=== PATIENT | male | born 1965 | race Caucasian/White ===

== ENCOUNTER → 2020-09-10 09:12 | Outpatient (BNVA) | payer BC, SELFPAY | PROVIDERS: PCP Family Medicine; Referring Provider Family Medicine; Visit Provider Nurse Practitioner Family | DX: Z76.89 Persons encountering health services in other specified circumstances (principal) ==

== ENCOUNTER 2020-11-25 10:24 | Outpatient (REF) | payer BC, SELFPAY | END 2020-11-25 10:25 | disposition home or self-care (01) | LOC: HO.WFDLNP 10:24 | PROVIDERS: Visit Provider Family Medicine | DX: Z20.822 Contact with and (suspected) exposure to COVID-19 (principal) | CPT/HCPCS: U0003 ==

== ENCOUNTER → 2020-11-26 08:52 | Outpatient (BNVA) | payer BC, SELFPAY | PROVIDERS: PCP Family Medicine; Visit Provider Nurse Practitioner Family | DX: Z13.89 Encounter for screening for other disorder (principal) ==

== ENCOUNTER 2020-12-02 | Outpatient (REF) | payer BC, SELFPAY | END 2020-12-02 00:01 | disposition home or self-care (01) | LOC: HO.WFDLNP | PROVIDERS: Visit Provider Family Medicine | DX: Z20.822 Contact with and (suspected) exposure to COVID-19 (principal) | CPT/HCPCS: U0003 ==

== ENCOUNTER → 2021-01-28 08:25 | Outpatient (BNVA) | payer BC, SELFPAY | PROVIDERS: PCP Family Medicine; Visit Provider Nurse Practitioner Family ==

== ENCOUNTER 2021-04-08 07:34 | Outpatient (REF) | payer BC, SELFPAY ==
[2021-04-08 11:03] LABS: Glucose Urine UA >=1000 MG/DL (NEG); Leukocyte Esterase Urine NEG (NEG); Nitrite Urine NEG (NEG); PH 5.5 (5.0-8.0); Specific Gravity - Urine >= 1.030 (1.005-1.025); Urine Blood NEG (NEG); Urine Ketones NEG (NEG); Urine Protein NEG (NEG-TRACE)
[2021-04-08 11:08] LABS: Appearance Urine CLEAR; Color Urine YELLOW
[2021-04-08 11:20] LABS: Alanine Aminotransferase 26 U/L (0-40); Albumin Level 4.5 g/dL (3.5-5.0); Alkaline Phosphatase 72 U/L (39-117); Anion Gap 13 (12-20); Aspartate Amino Transferase 15 U/L (5-37); Bilirubin Total 0.7 mg/dL (0.0-1.0); Blood Urea Nitrogen 17 mg/dL (9-16); Calcium 9.2 mg/dL (8.4-10.2); Carbon Dioxide 29 mmol/L (22-29); Chloride 101 mmol/L (96-108); Cholesterol 141 mg/dL; Estimated Glomerular Filt Rate > 60; Glucose Fasting 282 mg/dL (60-99); HDL Cholesterol 35 mg/dL; LDL Cholesterol Calculated 73 mg/dl; Potassium 4.5 mmol/L (3.3-5.1); Sodium 138 mmol/L (135-145); Total Protein 7.2 g/dL (6.5-8.0); Triglycerides 167 mg/dL
[2021-04-08 11:59] LABS: Microalbum/Creatinine Ratio Ur 11.3 ug/mg cr
[2021-04-08 12:01] LABS: RBC Urine 0 /HPF (0); Squamous Epithelial Cell Urine 1+ /LPF; WBC Urine 0 /HPF (0-4)
[2021-04-13 17:11] LABS: Testosterone, Free 31.1 pg/mL (35.0-155.0); Testosterone, Total 192 ng/dL (250-1100)
== END 2021-04-08 07:35 | disposition home or self-care (01) ==
LOC: HO.WFDLDS 07:34
PROVIDERS: Visit Provider Family Medicine
DX: Z00.00 Encounter for general adult medical examination without abnormal findings (principal); I10 Essential (primary) hypertension; E11.9 Type 2 diabetes mellitus without complications; E78.5 Hyperlipidemia, unspecified; N52.9 Male erectile dysfunction, unspecified
CPT/HCPCS: 36415; 80053; 80061; 81001; 81003; 82043; 84402; 84403; 84443

== ENCOUNTER → 2021-08-13 08:30 | Outpatient (BNVA) | payer BC, SELFPAY | PROVIDERS: PCP Family Medicine; Visit Provider Nurse Practitioner Gerontology | DX: E11.65 Type 2 diabetes mellitus with hyperglycemia (principal); E78.5 Hyperlipidemia, unspecified; E66.09 Other obesity due to excess calories; I10 Essential (primary) hypertension | CPT/HCPCS: 82947; 83036 ==

== ENCOUNTER 2022-05-14 08:09 | Outpatient (REF) | payer BC, SELFPAY ==
[2022-05-16 08:48] LABS: Follicle Stimulating Hormone 19.9 mIU/mL (1.6-8.0); Lutenizing Hormone 6.1 mIU/mL (1.5-9.3)
[2022-05-20 17:06] LABS: Testosterone, Free 57.1 pg/mL (35.0-155.0); Testosterone, Total 314 ng/dL (250-1100)
== END 2022-05-14 08:10 | disposition home or self-care (01) ==
LOC: HO.LAB 08:09
PROVIDERS: PCP Family Medicine; Visit Provider Internal Medicine Endocrinology, Diabetes & Metabolism
DX: R79.89 Other specified abnormal findings of blood chemistry (principal)
CPT/HCPCS: 36415; 83001; 83002; 84402; 84403

== ENCOUNTER 2022-07-28 14:14 | Outpatient (REF) | payer BC, SELFPAY ==
[2022-07-28 15:23] LABS: Influenza A PCR NEGATIVE (Negative); Influenza B PCR NEGATIVE (Negative); Resp Syncy Virus RNA Qual PCR NEGATIVE (Negative); SARS COV2 PCR INHOUSE POSITIVE (Negative)
== END 2022-07-28 14:15 | disposition home or self-care (01) ==
LOC: HO.LNP 14:14
PROVIDERS: Visit Provider Family Medicine
DX: Z20.822 Contact with and (suspected) exposure to COVID-19 (principal); B34.9 Viral infection, unspecified
CPT/HCPCS: 0241U

== ENCOUNTER 2022-10-10 09:17 | Outpatient (REF) | payer BC, SELFPAY ==
[2022-10-10 10:46] LABS: Alanine Aminotransferase 19 U/L (0-40); Albumin Level 4.6 g/dL (3.5-5.0); Alkaline Phosphatase 69 U/L (39-117); Anion Gap 15 (12-20); Aspartate Amino Transferase 15 U/L (5-37); Bilirubin Total 0.4 mg/dL (0.0-1.0); Blood Urea Nitrogen 12 mg/dL (9-16); Calcium 10.1 mg/dL (8.4-10.2); Carbon Dioxide 27 mmol/L (22-29); Chloride 100 mmol/L (96-108); Cholesterol 227 mg/dL; Estimated Glomerular Filt Rate > 60; Glucose Fasting 211 mg/dL (60-99); HDL Cholesterol 43 mg/dL; LDL Cholesterol Calculated 159 mg/dl; Potassium 5.2 mmol/L (3.3-5.1); Sodium 137 mmol/L (135-145); Total Protein 7.3 g/dL (6.5-8.0); Triglycerides 126 mg/dL
[2022-10-10 10:57] LABS: Prostate Specific Antigen Scr 0.22 ng/mL (<0.05-4.0); TSH reflex Free T4 0.51 uIU/mL (0.32-4.0)
[2022-10-10 10:59] LABS: Appearance Urine Clear; Color Urine Yellow; Glucose Urine UA 250 mg/dL (Negative); Leukocyte Esterase Urine Negative (Negative); Nitrite Urine Negative (Negative); Specific Gravity - Urine 1.015 (1.005-1.025); Urine Blood Negative (Negative); Urine Ketones Negative (Negative); Urine Protein Negative (Neg-Trace)
[2022-10-10 11:25] LABS: Creatinine Urine 77.58 mg/dL
== END 2022-10-10 09:18 | disposition home or self-care (01) ==
LOC: HO.LAB 09:17
PROVIDERS: PCP Family Medicine; Visit Provider Family Medicine
DX: Z00.00 Encounter for general adult medical examination without abnormal findings (principal); Z12.5 Encounter for screening for malignant neoplasm of prostate; I10 Essential (primary) hypertension
CPT/HCPCS: 36415; 80053; 80061; 81003; 82043; 84153; 84443

== ENCOUNTER 2022-10-29 10:34 | Outpatient (REF) | payer BC, SELFPAY ==
--- NOTE | ~2022-10-29 | XR_ITS ---
EXAMINATION: XR HIP, RIGHT CLINICAL INFORMATION: Right hip pain COMPARISON: None TECHNIQUE: Two views of the right hip. FINDINGS: No fracture or dislocation. The right hip is well aligned. There is significant narrowing of the joint space with subchondral sclerosis and osteophyte formation. The right hemipelvis is intact. Normal bowel gas pattern. XR/XR hip RT min 2V IMPRESSION: Moderate to severe degenerative changes of the right hip.
== END 2022-10-29 10:35 | disposition home or self-care (01) ==
LOC: HO.XRAY 10:34
PROVIDERS: PCP Family Medicine; Visit Provider Family Medicine
DX: M25.551 Pain in right hip (principal)
CPT/HCPCS: 73502

== ENCOUNTER 2022-12-12 09:41 | Outpatient (REF) | payer OTHER, SELFPAY ==
[2022-12-12 11:44] LABS: Alanine Aminotransferase 23 U/L (0-40); Albumin Level 4.4 g/dL (3.5-5.0); Alkaline Phosphatase 69 U/L (39-117); Anion Gap 16 (12-20); Aspartate Amino Transferase 17 U/L (5-37); Bilirubin Total 0.7 mg/dL (0.0-1.0); Blood Urea Nitrogen 11 mg/dL (9-16); Calcium 9.6 mg/dL (8.4-10.2); Carbon Dioxide 26 mmol/L (22-29); Chloride 102 mmol/L (96-108); Cholesterol 128 mg/dL; Estimated Glomerular Filt Rate > 60; Glucose Fasting 195 mg/dL (60-99); HDL Cholesterol 36 mg/dL; LDL Cholesterol Calculated 74 mg/dl; Potassium 4.7 mmol/L (3.3-5.1); Sodium 139 mmol/L (135-145); Triglycerides 94 mg/dL
== END 2022-12-12 09:42 | disposition home or self-care (01) ==
LOC: HO.LAB 09:41
PROVIDERS: PCP Family Medicine; Visit Provider Family Medicine
DX: Z00.00 Encounter for general adult medical examination without abnormal findings (principal); E11.65 Type 2 diabetes mellitus with hyperglycemia; E78.5 Hyperlipidemia, unspecified
CPT/HCPCS: 36415; 80053; 80061

== ENCOUNTER → 2022-12-23 14:57 | Outpatient (BNVA) | payer OTHER, SELFPAY | PROVIDERS: PCP Family Medicine; Visit Provider Physician Assistant | DX: Z13.89 Encounter for screening for other disorder (principal) ==

== ENCOUNTER → 2023-01-13 14:29 | Outpatient (BNVA) | payer OTHER, SELFPAY | PROVIDERS: PCP Family Medicine; Visit Provider Internal Medicine Endocrinology, Diabetes & Metabolism | DX: E11.65 Type 2 diabetes mellitus with hyperglycemia (principal) | CPT/HCPCS: 82947; 83036 ==

== ENCOUNTER 2023-01-20 12:29 | Outpatient (REF) | payer OTHER, SELFPAY ==
--- NOTE | ~2023-01-20 | XR_ITS ---
EXAMINATION: XR PELVIS CLINICAL INFORMATION: Pain in hips. COMPARISON: Right hip 10/29/2022. TECHNIQUE: AP view of the pelvis. FINDINGS: There is severe loss of right hip joint space with periarticular spurring and subchondral cystic changes. There is a total left hip arthroplasty with prosthetic components in satisfactory alignment. The SI joints are symmetrical. No gross bony abnormality seen. XR/XR pelvis 1-2V IMPRESSION: 1. Severe degenerative arthritic changes right hip joint. 2. Total left hip arthroplasty with prosthetic components in satisfactory alignment.
== END 2023-01-20 12:30 | disposition home or self-care (01) ==
LOC: HO.HOSX 12:29
PROVIDERS: Visit Provider Physician Assistant
DX: M16.11 Unilateral primary osteoarthritis, right hip (principal); Z79.899 Other long term (current) drug therapy; Z79.4 Long term (current) use of insulin; Z96.642 Presence of left artificial hip joint
CPT/HCPCS: 72170

== ENCOUNTER → 2023-05-24 10:44 | Outpatient (BNVA) | payer OTHER, SELFPAY | PROVIDERS: PCP Family Medicine; Visit Provider Dietitian, Registered | DX: E11.65 Type 2 diabetes mellitus with hyperglycemia (principal); Z71.3 Dietary counseling and surveillance | CPT/HCPCS: 97802 ==

== ENCOUNTER → 2023-05-31 10:54 | Day surgery (SDC) | payer OTHER, SELFPAY ==
[2023-05-27 13:30] VITALS: BMI 32.9
--- NOTE | 2023-05-27 14:25 | HO.ANESPROP2 ---
HPI - Anesthesia Eval Consult details Narrative: 57yo M for Colonoscopy [facility] Active Problems Active Problems: All Active Problems (Updated 04/12/23 @ 14:39 by Pepe Jane) Concussion (Acute) Osteoarthritis of right hip (Acute) Low HDL (under 40) (Acute) Right hip pain (Acute) Screening for prostate cancer (Acute) Screening for colon cancer (Acute) Adult general medical exam (Acute) Viral illness (Acute) Low testosterone (Acute) Hypertension (Acute) Hyperlipidemia (Acute) Obesity due to excess calories (Acute) Diabetes type 2, uncontrolled (Acute) Hypogonadism (Acute) Erectile dysfunction (Acute) Contact with or exposure to other viral diseases (Acute) Sinus infection (Acute) Cough (Acute) Contact with or exposure to other viral diseases (Acute) Depression (Acute) Type 2 diabetes mellitus without complication (Acute) Past Medical History Medical History Diabetes type 2, uncontrolled Hyperlipidemia Hypertension Low testosterone Obesity due to excess calories Obstructive sleep apnea Family History Family History Father Cancer Stroke (cerebrum) Mother CVD (cardiovascular disease) Diabetes HTN (hypertension) Mental disorder Brother Diabetes CVD (cardiovascular disease) Surgical History Surgical History History of total hip replacement Social History Social History Household Members: Spouse Housing: House Are you a primary career development associate to a significant other at home: No Do you presently have visiting nurse or other home services: No Alcohol intake: current Alcohol intake frequency: holidays/special occasions only Patient Tobacco Use Status: Former Tobacco user Quit Date: 2018 e-Cigarette/Vaping Use: Never Used Second Hand Smoke Exposure: No Current occupational status: employed 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 Current occupational exposures/hazards: No Cognitive needs: No Hearing needs: No Vision needs: No Meds Allergies Allergy/AdvReac Type Severity Reaction Status Date / Time niacin Allergy Mild neuropathy Verified 04/12/23 14:14 s/s Home Medications Medication Instructions Recorded Confirmed Last Taken Type amlodipine 5 mg-benazepril 20 mg 1 cap PO BEDTIME 05/27/23 05/27/23 Unknown History capsule atorvastatin 40 mg tablet 40 mg PO BEDTIME 05/27/23 05/27/23 Unknown History escitalopram oxalate 20 mg tablet 20 mg PO BEDTIME 05/27/23 05/27/23 Unknown History Exam Exam Date and Time: May 27, 2023 1425 Height,Weight and Vital Signs: Height 6 ft 2 in Weight 116.12 kg Pertinent Lab Results Pertinent Lab Results: Laboratory Tests 12/12/22 10:03 Sodium 139 Potassium 4.7 Chloride 102 Carbon Dioxide 26 BUN 11 Creatinine 0.90 Assessment and Plan Assessment Anesthesia Assessment: Chart Reviewed
== END ==
PROVIDERS: PCP Family Medicine; Visit Provider Internal Medicine Gastroenterology
DX: Z12.11 Encounter for screening for malignant neoplasm of colon (principal); Z53.8 Procedure and treatment not carried out for other reasons; I10 Essential (primary) hypertension; E78.5 Hyperlipidemia, unspecified; E11.9 Type 2 diabetes mellitus without complications

== ENCOUNTER 2023-06-22 12:06 | Day surgery (SDC) | payer OTHER, SELFPAY ==
[2023-06-18 08:39] VITALS: BMI 33.2
[2023-06-22 12:42] VITALS: BP 132/83; PULSE 79; RESP 18; TEMP 36.2; O2SAT 95; BMI 32.9
[2023-06-22 12:44] LABS: Glucose, Whole Blood 111 mg/dL (60-115)
[2023-06-22] MEDS: Lactated Ringers 1,000 ML 100 ML IVCONT (13:01)
[2023-06-22] MEDS: Sodium Phosphate,Mono-Dibasic 133 ML ENEMA PR ×2 (13:02→13:16)
--- NOTE | 2023-06-22 13:26 | MHC.SHP ---
Pre-Procedural Eval Section A Date of Service: 06/22/23 The patient is an INPATIENT: No The History & Physical has been completed within 30 days and I have reviewed it.: No Section B Chief Complaint: Encounter for screening for malignant neoplasm Relevant Family History (Specify if Yes): No Relevant Social History: None Present Medications: see Short Stay Collaborative assessment Medical History: Significant History (Diabetes type 2, uncontrolled Hyperlipidemia Hypertension Low testosterone Obesity due to excess calories Obstructive sleep apnea) History of Previous Operations: Relevant previous surgery/procedure and date(s) (History of total hip replacement) Allergies: Allergies Allergy/AdvReac Type Severity Reaction Status Date / Time niacin Allergy Mild neuropathy Verified 04/12/23 14:14 s/s Review of Systems Sugical H&P ROS: Negative: Constitution, Cardiovascular, Respiratory and Gastrointestinal Exam Surgical H&P Exam: Normal: Heart, Normal: Lungs, Normal: Extremities and Normal: Abdomen Plan Diagnosis/Plan: Unchanged I have reviewed the history and physical and performed a pertinent physical examination on my patient. No changes have occurred unless specified. Time Spent With Patient Time: Total time managing care of this patient today ____ minutes.
--- NOTE | 2023-06-22 13:50 | P.CONAN_ITS ---
HPI - Anesthesia Eval Consult details Narrative: for colonoscopy [facility] Active Problems Active Problems: All Active Problems (Updated 04/12/23 @ 14:39 by Pepe Jane) Concussion (Acute) Osteoarthritis of right hip (Acute) Low HDL (under 40) (Acute) Right hip pain (Acute) Screening for prostate cancer (Acute) Screening for colon cancer (Acute) Adult general medical exam (Acute) Viral illness (Acute) Low testosterone (Acute) Hypertension (Acute) Hyperlipidemia (Acute) Obesity due to excess calories (Acute) Diabetes type 2, uncontrolled (Acute) Hypogonadism (Acute) Erectile dysfunction (Acute) Contact with or exposure to other viral diseases (Acute) Sinus infection (Acute) Cough (Acute) Contact with or exposure to other viral diseases (Acute) Depression (Acute) Type 2 diabetes mellitus without complication (Acute) Past Medical History Medical History Diabetes type 2, uncontrolled Hyperlipidemia Hypertension Low testosterone Obesity due to excess calories Obstructive sleep apnea Family History Family History Father Cancer Stroke (cerebrum) Mother CVD (cardiovascular disease) Diabetes HTN (hypertension) Mental disorder Brother Diabetes CVD (cardiovascular disease) Family history of problems with anesthesia: No Surgical History Surgical History History of total hip replacement History of Problems with Anesthesia: No Social History Social History Household Members: Spouse Housing: House Are you a primary healthcare financial analyst to a significant other at home: No Do you presently have visiting nurse or other home services: No Alcohol intake: current Alcohol intake frequency: holidays/special occasions only Patient Tobacco Use Status: Former Tobacco user Quit Date: 2018 e-Cigarette/Vaping Use: Never Used Second Hand Smoke Exposure: No Use of substances other than those prescribed or required for medical reasons: No Are you DNR?: No Advance Directives: No Advance Directives Information Provided: Yes Current occupational status: employed 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 Current occupational exposures/hazards: No Cognitive needs: No Hearing needs: No Vision needs: No Meds Allergies Allergy/AdvReac Type Severity Reaction Status Date / Time niacin Allergy Mild neuropathy Verified 04/12/23 14:14 s/s Active Medications: Current Medications Lactated Ringer's (Lr) 1,000 mls @ 100 mls/hr IVCONT .Q10H HERB Last Admin: 06/22/23 13:01 Dose: 100 mls/hr Ondansetron HCl (Ondansetron Hcl 4 Mg/2 Ml Vial) 4 mg IVPUSH ONCE PRN PRN Reason: Nausea and Vomiting Sodium Biphosphate/Sodium Phosphate (Sodium Phosphate,[place]-Dibasic 133 Ml Enema) 133 ml SC ONCE PRN PRN Reason: Poor Colonoscopy Prep Results Last Admin: 06/22/23 13:02 Dose: 133 ml Sodium Biphosphate/Sodium Phosphate (Sodium Phosphate,[place]-Dibasic 133 Ml Enema) 133 ml SC ONCE PRN PRN Reason: Poor Colonoscopy Prep Results Last Admin: 06/22/23 13:16 Dose: 133 ml Home Medications Medication Instructions Recorded Confirmed Last Taken Type amlodipine 5 mg-benazepril 20 mg 1 cap PO BEDTIME 05/27/23 06/22/23 Unknown History capsule atorvastatin 40 mg tablet 40 mg PO BEDTIME 05/27/23 06/22/23 Unknown History escitalopram oxalate 20 mg tablet 20 mg PO BEDTIME 05/27/23 06/22/23 Unknown History Exam Exam Date and Time: June 22, 2023 1350 Height,Weight and Vital Signs: Height 6 ft 2 in Weight 116.12 kg Last Vital Signs Temp 97.1 F 06/22/23 12:42 Pulse 79 06/22/23 12:42 Resp 18 06/22/23 12:42 BP 132/83 06/22/23 12:42 Pulse Ox 95 06/22/23 12:42 O2 Del Method Room Air 06/22/23 12:42 Pertinent Lab Results Pertinent Lab Results: Laboratory Tests 06/22/23 12:39 POC Glucose 111 Airway Mallampati Class: I TM Dist: >3cm Neck ROM: Full Loose/Missing/Broken Teeth: No Heart: ok Lungs: ok Assessment and Plan Assessment Anesthesia Assessment: Anesthesia Plan Discussed and Chart Reviewed Final Anesthetic Review Family History of Problems with Anesthesia: No History of Problems with Anesthesia: No NPO: Yes ASA Class: III Final Preanesthetic Review: No Changes in Pt Med Stat, Meds/Allgs Chart Reviewed, Consent Obtained/Reviewed and Anes Risks/Benef Reviewed Patient Risk: Intermediate Procedure Risk: Low Anesthetic Plan Anesthetic Plan: MAC: and Agree w/ Assess. and Plan Disposition: Standard PACU
--- NOTE | 2023-06-22 13:54 | W.PM.OPN ---
Operative Note Operative Note Date of Service: 06/22/23 Narrative: COLONOSCOPY TILL CECUM WITH BIOPSIES AND SNARE POLYPECTOMY Pre-op diagnosis: Colon cancer screening Post-op diagnosis:? Colon polyps, diverticulosis, hemorrhoids Endoscopist:? Hamzah Alcaraz MD Anesthesia:?MAC Consent: Indications for the procedure and potential complications of bleeding, perforation, reaction to medications and missed diagnosis were discussed with the patient and informed consent was obtained. Instrument: Olympus CF H 190 L variable stiffness adult colonoscope Monitoring: Vital signs and clinical assessment, intermittent blood pressure monitoring, continuous EKG monitoring, Pulse oximetry and Carbon Dioxide monitoring were done throughout the procedure. Please see anesthesia flowsheet. Colon withdrawl time was 24 minutes. Procedure: The patient was placed in the left lateral decubitis position and pre-procedure medications were administered. After a digital rectal examination of the ano-rectum, the video colonoscope was inserted into the rectum and advanced through the colon to the cecum. The colonoscope was slowly withdrawn in a retrograde panoramic fashion and the colon mucosa was carefully examined including a retroflexed view of the rectum. Findings and interventions are described below. Procedure Difficulty: Colon was long and there was recurrent loop formation Findings: Terminal Ileum: Not evaluated Cecum: Partially evaluated due to undigested vegetable matter which could not be suctioned Ascending Colon: Normal Transverse Colon: A 3-4 mm diminutive appearing polyp removed with a cold biopsy Descending Colon: Moderate diverticulosis Sigmoid Colon: A 10 mm sessile polyp removed with a cold snare. Some bleeding noted from the polypectomy site controlled with 1 hemoclip. A 4-5 mm sessile polyp - removed with a cold biopsy Moderate diverticulosis Rectum: Normal Ano-rectum: Moderate internal hemorrhoids Colon preparation: Good after copious irrigation and fair in the cecum and left colon Impression and Post Procedure Diagnosis: Colonoscopy Findings: Two small and one medium sized polyps removed Moderate diverticulosis seen in the left colon Moderate hemorrhoids on retroflexed exam. Plan: Await pathology results Patient has an appointment on 07/07/23 in the GI Clinic with DECLAN Bhatti. Repeat Colonoscopy interval based on path results - in 3 years if polyps are adenomatous and due to fair prep. (adult colonoscope and dulcolax 2 tablets daily x 5 days before colonoscopy appt and 2 day prep) Above findings were reviewed with the patient and colon polyps and diverticulosis handouts were given in the discharge area
[2023-06-22 14:54] VITALS: BP 129/71; PULSE 69; RESP 15; TEMP 36.3; O2SAT 95
[2023-06-22 15:11] VITALS: BP 129/69; PULSE 68; RESP 18; TEMP 36.1; O2SAT 97
== END 2023-06-22 15:27 | disposition home or self-care (01) ==
PROVIDERS: PCP Family Medicine; Visit Provider Internal Medicine Gastroenterology
PROC: 0DJD8ZZ Inspection of Lower Intestinal Tract, Via Natural or Artificial Opening Endoscopic (ICD-10-PCS; CPT 45378; principal; 2023-06-22 13:30)
DX: Z12.11 Encounter for screening for malignant neoplasm of colon (principal); D12.3 Benign neoplasm of transverse colon; D12.5 Benign neoplasm of sigmoid colon; K57.30 Diverticulosis of large intestine without perforation or abscess without bleeding; K64.8 Other hemorrhoids; I10 Essential (primary) hypertension; E11.9 Type 2 diabetes mellitus without complications; E66.01 Morbid (severe) obesity due to excess calories; Z68.33 Body mass index [BMI] 33.0-33.9, adult; G47.33 Obstructive sleep apnea (adult) (pediatric); Z99.89 Dependence on other enabling machines and devices; Z79.899 Other long term (current) drug therapy; Z79.85 Long-term (current) use of injectable non-insulin antidiabetic drugs; Z79.84 Long term (current) use of oral hypoglycemic drugs; Z88.8 Allergy status to other drugs, medicaments and biological substances; Z96.642 Presence of left artificial hip joint; Z87.891 Personal history of nicotine dependence
CPT/HCPCS: 45385; 45380; 82947; 88305

== ENCOUNTER → 2023-06-22 12:06 | Outpatient (BNV) | payer OTHER, SELFPAY | PROVIDERS: PCP Family Medicine; Visit Provider Internal Medicine Gastroenterology | DX: Z12.11 Encounter for screening for malignant neoplasm of colon (principal); D12.3 Benign neoplasm of transverse colon; D12.5 Benign neoplasm of sigmoid colon; K57.90 Diverticulosis of intestine, part unspecified, without perforation or abscess without bleeding | CPT/HCPCS: 45380; 45385 ==

== ENCOUNTER 2023-07-01 09:59 | Outpatient (AMB) | payer OTHER, SELFPAY ==
--- NOTE | 2023-07-01 10:13 | MHC.PC.OV ---
Vital Signs 07/01/23 10:14 Height 6 ft 2 in Weight 250 lb 2 oz BMI 32.1 BP 122/78 Blood Pressure Location Lt brachial Position Sitting Respiration 12 Pulse 81 Pulse Source Pulse Oximeter Temp 97.7 F Temp Source Temporal Artery Scan Pulse Oximetry (%) 98 Oxygen Delivery Method Room Air Intake Visit Reasons: f/u diabetes Intake Note: Patient states that he needs a refill for his atorvastatin. Wire Taper Required: No Accompanied by: Self / Same As Patient Allergies niacin Allergy (Mild, Verified 07/01/23 10:23) neuropathy s/s Tobacco use date assessed: 10/06/22 Dental Screening Dental Screen Date: 07/01/23 Did you have a dental visit in the last 12 months?: No Did you have a dental problem in the last 6 months where you did not have access to dental care?: No Was dental information given to patient?: Patient has dentist HPI f/u diabetes HPI Details 57 y/o male presents to f/u diabetes. He is on dulaglutide 1.5mg, metformin 1000mg b.i.d. and Tresiba 76 units for his diabetes. Last A1c 01/13/23 10.5%. A1c today 07/01/23 is 8.2%. He reports he has recorded blood sugars in the 120-160s. He continues to work on losing his weight. He has had an eye exam on February and he reports there was no diabetic retinopathy. [facility] Medical History Diabetes type 2, uncontrolled Hyperlipidemia Hypertension Low testosterone Obesity due to excess calories Obstructive sleep apnea Surgical History History of total hip replacement Hx of colonoscopy Family History Father Cancer Stroke (cerebrum) Mother CVD (cardiovascular disease) Diabetes HTN (hypertension) Mental disorder Brother Diabetes CVD (cardiovascular disease) Social History Household Members: Spouse Housing: House Are you a primary career services director to a significant other at home: No Do you presently have visiting nurse or other home services: No Alcohol intake: current Alcohol intake frequency: holidays/special occasions only Patient Tobacco Use Status: Former Tobacco user Quit Date: 2018 e-Cigarette/Vaping Use: Never Used Second Hand Smoke Exposure: No service: No Current occupational status: employed 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 Raul Finch, Chiquis Cobos, Rodney Lamar and colleagues, with an educational shant from [employer] Review of Systems Const Denies chills, Denies fatigue, Denies fever(s), Denies headache(s) and Denies weakness ENT Denies dizziness and Denies headache(s) Card Denies chest pain, Denies lightheadedness, Denies dyspnea and Denies other (Palpitations) Resp Denies cough, Denies dyspnea, Denies wheezing and Denies other ( shortness of breath) Musc Denies numbness and Denies tingling Neuro Denies dizziness, Denies headache(s), Denies numbness, Denies tingling, Denies paresthesias and Denies weakness Psych Denies anxiety and Denies depression Endo Denies fatigue Aller/Immun Denies wheezing Physical exam (Primary Care) Vital Signs: Last Vital Signs Temp 97.7 F 07/01/23 10:14 Pulse 81 07/01/23 10:14 Resp 12 07/01/23 10:14 BP 122/78 07/01/23 10:14 Pulse Ox 98 07/01/23 10:14 Oxygen Delivery Method Room Air 07/01/23 10:14 BMI result Body Mass Index 32.1 Tobacco/Smoking Status: Tobacco use Status Tobacco use date assessed 10/06/22 07/01/23 10:13 Patient Tobacco Use Status Former Tobacco user 07/01/23 10:13 e-Cigarette/Vaping Use Never Used 07/01/23 10:13 Thrive Assessment: Date of Thrive Assessment Date Thrive assessed 12/16/22 07/01/23 10:13 Const General: no acute distress and well developed Nutritional Appearance: well nourished Orientation/consciousness: patient oriented x3 HENMT Head: Yes normocephalic and Yes atraumatic Eyes General: appearance normal, both eyes and all related structures Pupils: Equal, round and reactive pupils present EOM: EOMs intact bilaterally Resp Effort & Inspection: normal respiratory effort Auscultation: clear to auscultation bilaterally Cardio Rate: regular rate Rhythm: regular rhythm Heart sounds: S1 normal heart sound present, S2 normal heart sound present, no gallops, no murmurs and no rubs Neuro General: patient oriented x3 and gait normal Cranial nerves: Yes Equal, round and reactive pupils present Psych Affect: normal affect Results AMB Hemoglobin A1c AMB Hemoglobin A1c 8.2 % Last Edit by Chioma Allison CMA on 07/01/23 10:57 Results Reviewed Results Reviewed: Laboratory Last Values Hgb A1c (Clinic) 8.2 % (4.0-6.0) H 07/01/23 10:56 Assessment and Plan Assessment & Plan (1) Diabetes type 2, uncontrolled: Code(s): E11.65 - Type 2 diabetes mellitus with hyperglycemia Plan: A1c has improved from 10.5% to 8.2%. Still poorly controlled but much improved. Will is less than 7.0% Will increase Trulicity from 1.5 mg weekly to 3.0 mg weekly He will continue Tresiba and metformin as prescribed Followed by Nutrition and he is working on weight loss and improving his diabetic diet. Has a Veronika system which is helping him understand the changes he makes Had a recent eye exam in February which did not show any diabetic retinopathy He has not seen his fire alarm dispatcher since December so encouraged him to follow-up Orders: Orders AMB Hemoglobin A1c Today Z13.9 - Encounter for screening, unspecified Medications: Changed From atorvastatin 40 mg PO BEDTIME To atorvastatin 40 mg PO BEDTIME 90 tabs 3RF 90 days From dulaglutide on wednesday night 1.5 mg (0.5 mL) subcut QWEEK 84 days 6 mL 6RF E11.65 - Type 2 diabetes mellitus with hyperglycemia To dulaglutide on wednesday night 3 mg (0.5 mL) subcut QWEEK 6 mL 6RF 84 days E11.65 - Type 2 diabetes mellitus with hyperglycemia Discontinued atorvastatin 40 mg PO DAILY 90 tabs 2RF amlodipine-benazepril 5-20 mg 1 cap PO DAILY 90 caps 3RF escitalopram oxalate 20 mg PO DAILY 90 days 90 tabs 3RF Coding Level of Care Code Est Pt Level 3 (16565) Diagnoses Diabetes type 2, uncontrolled E11.65
[2023-07-01 10:14] VITALS: BP 122/78; PULSE 81; RESP 12; TEMP 36.5; O2SAT 98; BMI 32.1
== END 2023-07-01 10:52 | disposition home or self-care (01) ==
PROVIDERS: PCP Family Medicine; Visit Provider Family Medicine
DX: E11.65 Type 2 diabetes mellitus with hyperglycemia (principal)
CPT/HCPCS: 83036; 99213

== ENCOUNTER 2023-07-07 10:05 | Outpatient (AMB) | payer OTHER, SELFPAY ==
--- NOTE | 2023-07-07 10:06 | A.OFFVIS_ITS ---
Intake Vital Signs 07/07/23 10:08 Height 6 ft 2 in Weight 250 lb 2 oz BMI 32.1 BP 126/72 Blood Pressure Location Lt brachial Position Sitting Pulse 83 Intake Visit Reasons: S/p colon- Kieran Intake Note: Patient follow up for Colonoscopy results. Patient denies any GI issues. Armature Inspector Required: No Accompanied by: Self / Same As Patient Allergies niacin Allergy (Mild, Verified 07/07/23 10:06) neuropathy s/s PFSH Medical History Diabetes type 2, uncontrolled Hyperlipidemia Hypertension Low testosterone Obesity due to excess calories Obstructive sleep apnea Surgical History History of total hip replacement Hx of colonoscopy Family History Father Cancer Stroke (cerebrum) Mother CVD (cardiovascular disease) Diabetes HTN (hypertension) Mental disorder Brother Diabetes CVD (cardiovascular disease) Social History Household Members: Spouse Housing: House Are you a primary customer care specialist to a significant other at home: No Do you presently have visiting nurse or other home services: No Alcohol intake: current Alcohol intake frequency: holidays/special occasions only Patient Tobacco Use Status: Former Tobacco user Quit Date: 2018 e-Cigarette/Vaping Use: Never Used Second Hand Smoke Exposure: No service: No Current occupational status: employed 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 Current occupational exposures/hazards: No Cognitive needs: No Hearing needs: No Vision needs: No Review of Systems Const All systems reviewed & are unremarkable except as noted in HPI and below Card Denies chest pain and Denies dyspnea Resp Denies dyspnea Physical Exam Vital Signs: Last Vital Signs Pulse 83 07/07/23 10:08 BP 126/72 07/07/23 10:08 BMI result Body Mass Index 32.1 Const General: cooperative, healthy appearing and no acute distress Orientation/consciousness: patient oriented x3 Limitations: no limitations Resp Effort & Inspection: normal respiratory effort and able to speak in complete sentences Neuro General: patient oriented x3 Extrem General: Yes full ROM Psych Appearance: grossly normal and well kempt Mental Status: mental status grossly normal Speech and movement: Normal speech and movement present and Clear speech present Affect: normal affect Attitude: cooperative Thought process: Normal thought process present Thought content: Normal thought content present Insight: Good insight present (Psych) Judgement: Good judgement present (Psych) Results Reviewed Results Reviewed: lonoscopy Findings: Two small and one medium sized polyps removed Moderate diverticulosis seen in the left colon Moderate hemorrhoids on retroflexed exam. Plan: Await pathology results Patient has an appointment on 07/07/23 in the GI Clinic with DECLAN Bhatti. Repeat Colonoscopy interval based on path results - in 3 years if polyps are adenomatous and due to fair prep. (adult colonoscope and dulcolax 2 tablets daily x 5 days before colonoscopy appt and 2 day prep) Above findings were reviewed with the patient and colon polyps and diverticulosis handouts were given in the discharge area vicente:?Jesse Valera Age/Sex: 57/M Attending: Hamzah Alcaraz MD : [id number] Submitted by: Hamzah Alcaraz MD Copies to: Octaviano Villeda MD MR #: [id number] ? [place] [facility] [place] [facility] [place]: 06/22/23 Location: [facility] Received: 06/23/23 Diagnosis A.? Colon, transverse, polyp:? Tubular adenoma; negative for high-grade dysplasia and carcinoma.? B.? Colon, sigmoid, 2 polyps:? Tubular adenoma (one); negative for high-grade dysplasia and carcinoma, and colonic mucosa (3 pieces) with minimal hyperplastic changes. Clinical History Pre-Op Dx:? Colon cancer screening Post-Op Dx: Colon polyps, diverticulosis, hemorrhoids You should undergo a colonoscopy again in 3 years Assessment & Plan Assessment & Plan (1) Tubular adenoma: Comment: Reviewed procedure report and pathology, recommendations Code(s): D36.9 - Benign neoplasm, unspecified site Plan: The asymptomatic colonoscopy 3 years (2) Diverticulosis of colon: Code(s): K57.30 - Diverticulosis of large intestine without perforation or abscess without bleeding Plan: Diverticulosis/diverticulitis ER protocol\maintain high-fiber diet (3) Hemorrhoids: Code(s): K64.9 - Unspecified hemorrhoids Plan: Avoid straining High-fiber diet Plan Repeat Colonoscopy 3 years adenomatous and due to fair prep. (adult colonoscope and dulcolax 2 tablets daily x 5 days before colonoscopy appt and 2 day prep) Medications: Discontinued atorvastatin 40 mg PO DAILY 90 tabs 2RF amlodipine-benazepril 5-20 mg 1 cap PO DAILY 90 caps 3RF escitalopram oxalate 20 mg PO DAILY 90 days 90 tabs 3RF Patient Instructions: Very pleasant 57-year-old talkative Gent follows up after recent colonoscopy with polypectomy Reviewed procedure report and pathology 3 year repeat colonoscopy ER protocol- Diverticulosis/ diverticulitis Avoid straining Coding Level of Care Code Est Pt Level 3 (34289) Diagnoses Tubular adenoma D36.9 Diverticulosis of colon K57.30 Hemorrhoids K64.9 Time Spent (min) 25
[2023-07-07 10:08] VITALS: BP 126/72; PULSE 83; BMI 32.1
== END 2023-07-07 10:45 | disposition home or self-care (01) ==
PROVIDERS: PCP Family Medicine; Visit Provider Physician Assistant
DX: D36.9 Benign neoplasm, unspecified site (principal); K57.30 Diverticulosis of large intestine without perforation or abscess without bleeding; K64.9 Unspecified hemorrhoids
CPT/HCPCS: 99213

== ENCOUNTER → 2023-07-07 10:05 | Outpatient (BNVA) | payer OTHER, SELFPAY | PROVIDERS: PCP Family Medicine; Visit Provider Physician Assistant ==

== ENCOUNTER 2023-09-16 09:39 | Outpatient (AMB) | payer OTHER, SELFPAY ==
[2023-09-16 09:43] VITALS: BP 120/80; PULSE 77; O2SAT 98; BMI 32.5
--- NOTE | 2023-09-16 09:43 | A.OFFPC_ITS ---
Vital Signs 09/16/23 09:43 Height 6 ft 2 in Weight 253 lb 8 oz BMI 32.5 BP 120/80 Blood Pressure Location Lt brachial Position Sitting Pulse 77 Pulse Source Pulse Oximeter Pulse Oximetry (%) 98 Oxygen Delivery Method Room Air Intake Visit Reasons: depression Intake Note: Patient is here for follow up on depression. Allergies niacin Allergy (Mild, Verified 09/16/23 09:45) neuropathy s/s Tobacco use date assessed: 09/16/23 HPI depression HPI Details 58 y/o male presents to f/u depression. Pt is on bupropion 75mg b.i.d. for his mood. He has had multiple stressors this year dealing with family tragedy. He has been keeping himself active doing outdoor things. They state he has good family support. He continues to follow-up with Dr. Linares Endocrinology for his diabetes. Pt has ongoing complaints of hip pain. [facility] Medical History Diabetes type 2, uncontrolled Hyperlipidemia Hypertension Low testosterone Obesity due to excess calories Obstructive sleep apnea Surgical History History of total hip replacement Hx of colonoscopy Family History Father Cancer Stroke (cerebrum) Mother CVD (cardiovascular disease) Diabetes HTN (hypertension) Mental disorder Brother Diabetes CVD (cardiovascular disease) Social History Household Members: Spouse Housing: House Are you a primary care management coordinator to a significant other at home: No Do you presently have visiting nurse or other home services: No Alcohol intake: current Alcohol intake frequency: holidays/special occasions only Patient Tobacco Use Status: Former Tobacco user Quit Date: 2018 e-Cigarette/Vaping Use: Never Used Second Hand Smoke Exposure: No service: No Current occupational status: employed 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 1. Little interest or pleasure in doing things: more than half the days 2. Feeling down, depressed, or hopeless: more than half the days 3. Trouble falling or staying asleep, or sleeping too much: nearly every day 4. Feeling tired or having little energy: more than half the days 5. Poor appetite or overeating: not at all 6. Feeling bad about yourself - or that you are a failure or have let yourself or your family down: more than half the days 7. Trouble concentrating on things, such as reading the newspaper or watching television: not at all 8. Moving or speaking so slowly that other people could have noticed. Or the opposite - being so fidgety or restless that you have been moving around a lot more than usual: not at all 9. Thoughts that you would be better off or of hurting yourself in some way: not at all Total score: 11 Depression Screening Interpretation: Positive Depression Screening Done: Yes Source: Developed by Drs. Raul Finch, Chiquis Cobos, Rodney Lamar and colleagues, with an educational shant from [employer]. Thrive Questionnaire Date Thrive assessed: 12/16/22 WOO-7 AMB Questionnaire WOO-7 Date WOO - 7 assessed: 09/16/23 Feeling nervous, anxious, or on edge: 1 = Several days Not being able to stop or control worryin = Not at all Worrying too much about different things: 1 = Several days Trouble relaxin = Not at all Being so restless that it is hard to sit still: 0 = Not at all Becoming easily annoyed or irritable: 1 = Several days Feeling afraid as if something awful might happen: 1 = Several days Total WOO-7 score (0-4 normal; 5-9 mild; 10-14 moderate; 15-21 severe): 4 Source: Developed by Drs. Raul Finch, Chiquis Cobos, Rodney Lamar and colleagues, with an educational shant from [employer]. Review of Systems Const Denies chills, Denies fatigue, Denies fever(s), Denies headache(s) and Denies weakness ENT Denies dizziness and Denies headache(s) Card Denies dyspnea Resp Denies cough, Denies dyspnea, Denies wheezing and Denies other (shortness of breath) Musc Denies numbness and Denies tingling Neuro Denies dizziness, Denies headache(s), Denies numbness, Denies tingling and Denies weakness Psych Denies anxiety and Reports depression Endo Denies fatigue Aller/Immun Denies wheezing Physical exam (Primary Care) Vital Signs: Last Vital Signs Pulse 77 09/16/23 09:43 BP 120/80 09/16/23 09:43 Pulse Ox 98 09/16/23 09:43 Oxygen Delivery Method Room Air 09/16/23 09:43 BMI result Body Mass Index 32.5 Tobacco/Smoking Status: Tobacco use Status Tobacco use date assessed 09/16/23 09/16/23 09:45 Patient Tobacco Use Status Former Tobacco user 09/16/23 09:45 e-Cigarette/Vaping Use Never Used 09/16/23 09:45 PHQ-9: PHQ-9 Score PHQ-9: Total score 11 09/16/23 09:53 Depression Screening Interpretation: Positive Thrive Assessment: Date of Thrive Assessment Date Thrive assessed 12/16/22 09/16/23 09:45 Const General: well developed; No acute distress Nutritional Appearance: well nourished Orientation/consciousness: patient oriented x3 HENMT Head: Yes normocephalic and Yes atraumatic Eyes General: appearance normal, both eyes and all related structures Pupils: Equal, round and reactive pupils present EOM: EOMs intact bilaterally Resp Effort & Inspection: normal respiratory effort Neuro General: patient oriented x3 and gait normal Cranial nerves: Yes Equal, round and reactive pupils present Psych Affect: normal affect Assessment and Plan Assessment & Plan (1) Depression: Code(s): F32.9 - Major depressive disorder, single episode, unspecified Plan: Patient?has?had?an?on going?struggle?with?depression?and?increased?stressors?this?year?with?the?? of?his?mom?and?the??of?another?close?family?member?with?small?children. Also?has?had?difficulty?finding?a?job. Will?increase?bupropion?from?a?daily?dose?of?150mg?to?100?mg?daily Will?ask?the?nurse?navigator?to?help?connect?him?with?a?therapist Encouraged?exercise?and?social?activities (2) Type 2 diabetes mellitus without complication: Code(s): E11.9 - Type 2 diabetes mellitus without complications Plan: A1c?continues?to?improve. His?Veronika?is estimating?A1c?at?8.0%?and?he?started?over?10%. Goal?however?is?less?than?7.0% I?had?increased?his?Trulicity?at?last?visit?and?he?continues?Tresiba?and?met formin. He?has?an?appointment?with?his?compression molding machine operator?in?about?4?days?so?I?have?not?mad e?any?changes?to?his?medication;?he?will?follow-up?with?endocrinology (3) Right hip pain: Code(s): M25.551 - Pain in right hip Plan: Ongoing?right?hip?pain?and?he?has?seen?the?orthopedic?specialist?to?i s?holding?off?on?surgery?until?his?blood?sugars?are?better?controlled. He?has?improving?control?and?has?an?appointment?with?his?compression molding machine operator?soon. He?can?use?ibuprofen?and?acetaminophen?for?now. Orders: Referrals Nurse Navigator Referral F32.9 - Major depressive disorder, single episode, unspecified Medications: New bupropion HCl 200 mg PO DAILY 90 days 90 tabs 3RF Discontinued bupropion HCl Discontinued Reason: Doctor's Order 75 mg PO BID 90 days 180 tabs 3RF Coding Level of Care Code Est Pt Level 3 (11389) Diagnoses Depression F32.9 Type 2 diabetes mellitus without complication E11.9 Right hip pain M25.551
== END 2023-09-16 10:15 | disposition home or self-care (01) ==
PROVIDERS: PCP Family Medicine; Visit Provider Family Medicine
DX: F33.9 Major depressive disorder, recurrent, unspecified (principal); E11.9 Type 2 diabetes mellitus without complications; M25.551 Pain in right hip
CPT/HCPCS: 99213

== ENCOUNTER 2023-09-20 09:41 | Outpatient (AMB) | payer OTHER, SELFPAY ==
--- NOTE | 2023-09-20 09:43 | MHC.OFFVIS ---
Intake Vital Signs 09/20/23 09:47 Height 6 ft 2 in Weight 254 lb 6.615 oz BMI 32.7 BP 114/74 Blood Pressure Location Lt brachial Position Sitting Pulse 71 Pulse Source Pulse Oximeter Intake Visit Reasons: T2DM Intake Note: Patient presents today to follow up on Type Diabetes Mellitus. Patient receives DME supplies through: Pharmacy Last Diabetic Eye exam: 02/2023 Last Podiatry Visit: None Random Glucose: 167 mg/dl HgA1C:8.5% Obiee Consultant Required: No Accompanied by: Spouse Allergies niacin Allergy (Mild, Verified 09/20/23 09:50) neuropathy s/s Medication List - Last Reconciled 09/20/23 by Raul Linares MD amlodipine-benazepril 5-20 mg 1 cap PO BEDTIME atorvastatin 40 mg PO BEDTIME 90 days blood-glucose sensor (Badge Veronika 3 Sensor device) As directed change every 2 wks bupropion HCl 200 mg PO DAILY 90 days escitalopram oxalate 20 mg PO BEDTIME metformin 1,000 mg (2 x 500 mg) PO BID 90 days pen needle, diabetic BID tadalafil (Cialis) 20 mg PO DAILY PRN tirzepatide (Mounjaro) 5 mg (0.5 mL) subcut QWEEK Tresiba FlexTouch U-200 (insulin degludec) 76 units (0.38 mL) subcut BEDTIME NS HPI HPI Comments History of Present Illness Details Patient is with DM type 2 diagnosed around 2011 , referred by Dr. Villeda for diabetes who presents for management of diabetes. Past medical history: DM2, HLD, HTN, ED, hypogonadism. Micro and macrovascular complications: none known Diabetes medications:, Tresiba 76 units , [id number] mg BID . Trulicity 3 mg qwkly Symptoms reported: denies numbness, tingling, cramping in lower extremities Hypoglycemia: denies Hyperglycemia: denies urinary frequency, nocturia, polydypsia Blood glucose monitoring: Veronika download shows the sensors active 82% of the time. Average glucose is 198 with G mi of 8% and variability 29.8%. 44% range with 76% hyperglycemia and no hypoglycemia. Pattern is downward trend overnight but increases post-breakfast and post- dinner Twisting Frame Operator - CDE education: denies Experimental Rocket Sled Mechanic: denies Ophthalmology evaluation: last visit 02/2023 Laboratory Tests 04/07/21 04/08/21 04/08/21 15:38 07:45 07:45 Creatinine 0.89 Estimated GFR > 60 Hgb A1c (Clinic) 10.0 H Triglycerides 167 Cholesterol 141 LDL Cholesterol, C alc 73 HDL Cholesterol 35 TSH 0.60 Microalb/Creat Rat io 04/08/21 07:45 Creatinine Estimated GFR Hgb A1c (Clinic) Triglycerides Cholesterol LDL Cholesterol, C alc HDL Cholesterol TSH Microalb/Creat Rat io 11.3 PFSH Medical History Diabetes type 2, uncontrolled Hyperlipidemia Hypertension Low testosterone Obesity due to excess calories Obstructive sleep apnea Surgical History History of total hip replacement Hx of colonoscopy Family History Father Cancer Stroke (cerebrum) Mother CVD (cardiovascular disease) Diabetes HTN (hypertension) Mental disorder Brother Diabetes CVD (cardiovascular disease) Social History Household Members: Spouse Housing: House Are you a primary morning caregiver to a significant other at home: No Do you presently have visiting nurse or other home services: No Alcohol intake: current Alcohol intake frequency: holidays/special occasions only Patient Tobacco Use Status: Former Tobacco user Quit Date: 2018 e-Cigarette/Vaping Use: Never Used Second Hand Smoke Exposure: No service: No Current occupational status: employed 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 Absence of acromegalic features. Neck exam reveals nl size thyroid about 15 gms. No thyroid nodules palpable. No carotid bruits present. Lungs CTA. Heart S1 S2, Reg R/R. No M/R/ G. Skin exam reveals absence of vitiligo or acanthosis nigricans. Abdominal exam reveals Soft NT/ND with NA BS. No organomegaly present. Neck Other: . Extrem Other: Visual exam of foot performed. No ulcerations or open lesions. No onchomycosis, no callouses.Pulses 2 + distally Sensation intact to monofilament exam. Vibratory sensation sensed is decreaed with 128 Hz tuning fork Results AMB Hemoglobin A1c AMB Hemoglobin A1c 8.5 % Last Edit by Vanessa Carroll on 09/20/23 10:14 Results Reviewed Results Reviewed: 09/20/23 09:53 Glucose, Whole Blood Routine Laboratory Last Values Glucose (Clinic) 167 mg/dL (60-115) H 09/20/23 09:53 Assessment & Plan Assessment & Plan (1) Diabetes type 2, uncontrolled: Code(s): E11.65 - Type 2 diabetes mellitus with hyperglycemia Plan: This is a 58-year-old white male with a history of type 2 diabetes being treated metformin , Trulicity and basal insulin with poor glycemic control and no known microvascular or macrovascular complications. The plan is change the Trulicity to Mounjaro 2.5 mg and titrate as tolerated. Went over side effects of Mounjaro including but not limited to nausea, vomiting risk pancreatitis. Also told patient to monitor with Veronika for hypoglycemia and to report so we can adjust Tresiba dose. If control is not achieved with the following, could consider ordering prandial insulin in combination orienting SGLT 2 inhibitor Mounjaro 2.5 mg samples given to patient lot number [id number] C expiration 11/26/2024 Orders: Orders AMB Hemoglobin A1c Today E11.65 - Type 2 diabetes mellitus with hyperglycemia Medications: New tirzepatide (Mounjaro) 5 mg (0.5 mL) subcut QWEEK 2 mL 5RF Discontinued dulaglutide on wednesday night Discontinued Reason: Doctor's Order 3 mg (0.5 mL) subcut QWEEK 6 mL 6RF 84 days E11.65 - Type 2 diabetes mellitus with hyperglycemia Coding Level of Care Code Est Pt Level 4 (04465) Diagnoses Diabetes type 2, uncontrolled E11.65
[2023-09-20 09:47] VITALS: BP 114/74; PULSE 71; BMI 32.7
[2023-09-20 09:58] LABS: Glucose, Whole Blood 167 mg/dL (60-115)
== END 2023-09-20 10:23 | disposition home or self-care (01) ==
PROVIDERS: PCP Family Medicine; Visit Provider Internal Medicine Endocrinology, Diabetes & Metabolism
DX: E11.65 Type 2 diabetes mellitus with hyperglycemia (principal)
CPT/HCPCS: 99214

== ENCOUNTER → 2023-09-20 09:41 | Outpatient (BNVA) | payer OTHER, SELFPAY | PROVIDERS: PCP Family Medicine; Visit Provider Internal Medicine Endocrinology, Diabetes & Metabolism | DX: E11.65 Type 2 diabetes mellitus with hyperglycemia (principal); Z79.4 Long term (current) use of insulin | CPT/HCPCS: 82947; 83036 ==

== ENCOUNTER 2023-10-06 15:31 | Outpatient (AMB) | payer OTHER, SELFPAY ==
[2023-10-06 15:47] VITALS: BP 118/70; PULSE 83; O2SAT 95; BMI 32.9
--- NOTE | 2023-10-06 15:47 | A.OFFPC_ITS ---
Vital Signs 10/06/23 15:47 Height 6 ft 2 in Weight 256 lb BMI 32.9 BP 118/70 Blood Pressure Location Lt brachial Position Sitting Pulse 83 Pulse Source Pulse Oximeter Pulse Oximetry (%) 95 Oxygen Delivery Method Room Air Intake Visit Reasons: f/u diabetes Intake Note: Patient is here for follow up on diabetes. Allergies niacin Allergy (Mild, Verified 10/06/23 15:49) neuropathy s/s Tobacco use date assessed: 10/06/23 HPI f/u diabetes HPI Details 58 y/o male presents to f/u diabetes and depression. Had increased bupropion to 200mg daily. Had seen endocrinology 09/20/23. They plan to change Trulicity to Mounjaro 2.5mg. A1c 09/20/23 8.5%. He is on mounjaro 5mg, Tresiba 76 units and metformin 1000mg. HPI Comments History of Present Illness Details Documentation assistance for Octaviano Villeda MD, was provided by Pepe Jane,? Sales Correspondence Clerk on 10/06/2023 4:12 PM EST. I, Dr. Villeda, have read, observed, and verified documentation.? [facility] Medical History Diabetes type 2, uncontrolled Hyperlipidemia Hypertension Low testosterone Obesity due to excess calories Obstructive sleep apnea Surgical History Hx of colonoscopy History of total hip replacement Family History Father Cancer Stroke (cerebrum) Mother CVD (cardiovascular disease) Diabetes HTN (hypertension) Mental disorder Brother Diabetes CVD (cardiovascular disease) Social History Household Members: Spouse Housing: House Are you a primary care nurse rn to a significant other at home: No Do you presently have visiting nurse or other home services: No Alcohol intake: current Alcohol intake frequency: holidays/special occasions only Patient Tobacco Use Status: Former Tobacco user Quit Date: 2018 e-Cigarette/Vaping Use: Never Used Second Hand Smoke Exposure: No service: No Current occupational status: employed 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 Raul Finch, Chiquis Cobos, Rodney Lamar and colleagues, with an educational shant from [employer]. Review of Systems Const Denies chills, Denies fatigue, Denies fever(s), Denies headache(s) and Denies weakness ENT Denies dizziness and Denies headache(s) Card Denies dyspnea Resp Denies cough, Denies dyspnea, Denies wheezing and Denies other (shortness of breath) Musc Denies numbness and Denies tingling Neuro Denies dizziness, Denies headache(s), Denies numbness, Denies tingling and Denies weakness Psych Denies anxiety and Denies depression Endo Denies fatigue Aller/Immun Denies wheezing Physical exam (Primary Care) Vital Signs: Last Vital Signs Pulse 83 10/06/23 15:47 BP 118/70 10/06/23 15:47 Pulse Ox 95 10/06/23 15:47 Oxygen Delivery Method Room Air 10/06/23 15:47 BMI result Body Mass Index 32.9 Tobacco/Smoking Status: Tobacco use Status Tobacco use date assessed 10/06/23 10/06/23 15:49 Patient Tobacco Use Status Former Tobacco user 10/06/23 15:49 e-Cigarette/Vaping Use Never Used 10/06/23 15:49 Thrive Assessment: Date of Thrive Assessment Date Thrive assessed 12/16/22 10/06/23 15:49 Const General: well developed; No acute distress Nutritional Appearance: well nourished Orientation/consciousness: patient oriented x3 HENMT Head: Yes normocephalic and Yes atraumatic Eyes General: appearance normal, both eyes and all related structures Pupils: Equal, round and reactive pupils present EOM: EOMs intact bilaterally Resp Effort & Inspection: normal respiratory effort Auscultation: clear to auscultation bilaterally Cardio Rate: regular rate Rhythm: regular rhythm Heart sounds: S1 normal heart sound present, S2 normal heart sound present, no gallops, no murmurs and no rubs Neuro General: patient oriented x3 and gait normal Cranial nerves: Yes Equal, round and reactive pupils present Psych Affect: normal affect Assessment and Plan Assessment & Plan (1) Type 2 diabetes mellitus without complication: Code(s): E11.9 - Type 2 diabetes mellitus without complications Plan: Had?had?some?low?blood?sugars?after?switching?Trulicity?to?Mounjaro?and?he?has?a djusted?his?Tresiba. Now?getting?blood?sugars?typically?around?1-teens. Continue?current?medication?regimen Continue?exercise No?medications?changes?today?and?he?has?a?follow- up?appointment?with?endocrinology?in?October?and?December. Will?follow-up?after?that Last?eye?exam?on?file?is?greater?than?a?year?ago?but?patient?says?he?had?an?eye? exam?more?recently.??Will?request?report (2) Depression: Code(s): F32.9 - Major depressive disorder, single episode, unspecified Plan: Improving?and?working?on?getting?a?therapist. Will?continue?bupropion?as?prescribed Orders: Orders Complete Blood Count Auto Diff Today Z00.00 - Encounter for general adult medical examination without abnormal findings Lipid Panel Today Z00.00 - Encounter for general adult medical examination without abnormal findings Prostate Specific Antigen Scr Today Z12.5 - Encounter for screening for malignant neoplasm of prostate UA and rflx microscopic Today Z00.00 - Encounter for general adult medical examination without abnormal findings Comprehensive [place]. Panel Fast Today Z00.00 - Encounter for general adult medical examination without abnormal findings Microalbumin, Random (w Creat) Today I10 - Essential (primary) hypertension TSH reflex Free T4 Today Z00.00 - Encounter for general adult medical examination without abnormal findings Coding Level of Care Code Est Pt Level 3 (60510) Diagnoses Type 2 diabetes mellitus without complication E11.9 Depression F32.9
== END 2023-10-06 16:26 | disposition home or self-care (01) ==
PROVIDERS: PCP Family Medicine; Visit Provider Family Medicine
DX: E11.9 Type 2 diabetes mellitus without complications (principal); F32.9 Major depressive disorder, single episode, unspecified
CPT/HCPCS: 99213

== ENCOUNTER 2023-10-27 09:37 | Outpatient (REF) | payer OTHER, SELFPAY ==
[2023-10-27 09:47] LABS: MANUAL DIFF FLAG NO
[2023-10-27 10:40] LABS: Appearance Urine Clear; Color Urine Yellow; Glucose Urine UA >=1000 mg/dL (Negative); Leukocyte Esterase Urine Negative (Negative); Nitrite Urine Negative (Negative); PH 5.5 (5.0-9.0); Specific Gravity - Urine >= 1.030 (1.005-1.025); UMIC TRIGGER UA YES; Urine Blood Negative (Negative); Urine Ketones Trace mg/dL (Negative); Urine Protein Negative (Neg-Trace)
[2023-10-27 10:47] LABS: Basophils Absolute Auto 0.1 X10*3/uL (0.0-0.2); Basophils Percent Auto 0.8 % (0-2); Eosinophils Absolute Auto 0.2 X10*3/uL (0.0-0.4); Eosinophils Percent Auto 2.2 % (0-4); Hematocrit 45.2 % (42.0-52.0); Hemoglobin 15.3 g/dl (14.0-18.0); Imm Gran Abs Auto 0.04 X10*3/uL (0.00-0.03); Imm Gran Pct Auto 0.5 % (0.0-0.4); Lymphocytes Absolute Auto 2.6 X10*3/uL (1.2-4.9); Lymphocytes Percent Auto 30.4 % (20-40); Mean Corpuscular HGB Conc 33.8 g/dl (31.0-36.0); Mean Corpuscular Hemoglobin 29.8 pg (27.0-33.0); Mean Corpuscular Volume 88.1 fL (80.0-98.0); Mean Platelet Volume 9.8 fL (9.4-12.4); Monocytes Absolute Auto 0.8 X10*3/uL (0.1-1.2); Monocytes Percent Auto 8.8 % (2-11); Neutrophils Absolute Auto 4.9 x10*3/uL (2.0-8.3); Neutrophils Percent Auto 57.3 % (45-73); Platelet Count 254 X10*3/uL (160-400); Red Blood Count 5.13 X10*6/uL (4.60-5.80); Red Cell Distribution Width 12.4 % (11.0-16.0); White Blood Count 8.5 X10*3/uL (4.8-10.8)
[2023-10-27 11:14] LABS: Creatinine Urine 139.27 mg/dL; Microalbum/Creatinine Ratio Ur 11.4 ug/mg cr (<30)
[2023-10-27 11:22] LABS: Bacteria Urine None Seen (None Seen); Hyaline Casts Urine 0-2 /LPF (0-2); RBC Urine 0-2 /HPF (0-2); Squamous Epithelial Cell Urine 0-2 /HPF (0-2); WBC Urine 0-5 /HPF (0-5)
[2023-10-27 11:31] LABS: Prostate Specific Antigen Scr 0.37 ng/mL (<0.05-4.0)
[2023-10-27 11:34] LABS: Alanine Aminotransferase 18 U/L (0-40); Albumin Level 4.4 g/dL (3.5-5.0); Alkaline Phosphatase 72 U/L (39-117); Anion Gap 15 (12-20); Aspartate Amino Transferase 14 U/L (5-37); Bilirubin Total 0.6 mg/dL (0.0-1.0); Blood Urea Nitrogen 17 mg/dL (9-16); Calcium 9.7 mg/dL (8.4-10.2); Carbon Dioxide 26 mmol/L (22-29); Chloride 100 mmol/L (96-108); Cholesterol 127 mg/dL (<200); Estimated Glomerular Filt Rate > 60; Glucose Fasting 286 mg/dL (60-99); HDL Cholesterol 37 mg/dL (>40); LDL Cholesterol Calculated 63 mg/dL (<100); Potassium 4.4 mmol/L (3.3-5.1); Sodium 137 mmol/L (135-145); Total Protein 7.6 g/dL (6.5-8.0); Triglycerides 136 mg/dL (<150)
[2023-10-27 11:37] LABS: TSH reflex Free T4 0.93 uIU/mL (0.32-4.0)
== END 2023-10-27 09:38 | disposition home or self-care (01) ==
LOC: HO.LAB 09:37
PROVIDERS: PCP Family Medicine; Visit Provider Family Medicine
DX: Z00.00 Encounter for general adult medical examination without abnormal findings (principal); Z12.5 Encounter for screening for malignant neoplasm of prostate; I10 Essential (primary) hypertension
CPT/HCPCS: 36415; 80053; 80061; 81001; 82043; 82570; 84153; 84443; 85025

== ENCOUNTER 2023-11-01 10:40 | Outpatient (AMB) | payer OTHER, SELFPAY ==
--- NOTE | 2023-11-01 11:32 | A.OFFVIS_ITS ---
Intake Intake Visit Reasons: T2DM/LVM Patient Ambassador Required: No Accompanied by: Self / Same As Patient Allergies niacin Allergy (Mild, Verified 10/06/23 15:49) neuropathy s/s HPI Comprehensive Diabetes Asmnt Most Recent Diabetes Results: Hemoglobin A1c 11.0 % 04/20/20 Microalb/Creat Ratio 11.4 ug/mg cr (<30) 10/27/23 Cholesterol 127 mg/dL (<200) 10/27/23 HDL Cholesterol 37 mg/dL (>40) L 10/27/23 Triglycerides 136 mg/dL (<150) 10/27/23 Creatinine 0.84 mg/dL (0.5-1.4) 10/27/23 Blood Urea Nitrogen 17 mg/dL (9-16) H 10/27/23 Sodium 137 mmol/L (135-145) 10/27/23 Potassium 4.4 mmol/L (3.3-5.1) 10/27/23 Chloride 100 mmol/L (96-108) 10/27/23 Carbon Dioxide 26 mmol/L (22-29) 10/27/23 Calcium 9.7 mg/dL (8.4-10.2) 10/27/23 AST 14 U/L (5-37) 10/27/23 ALT 18 U/L (0-40) 10/27/23 Total Protein 7.6 g/dL (6.5-8.0) 10/27/23 Albumin 4.4 g/dL (3.5-5.0) 10/27/23 [facility] Medical History Diabetes type 2, uncontrolled Hyperlipidemia Hypertension Low testosterone Obesity due to excess calories Obstructive sleep apnea Surgical History Hx of colonoscopy History of total hip replacement Family History Father Cancer Stroke (cerebrum) Mother CVD (cardiovascular disease) Diabetes HTN (hypertension) Mental disorder Brother Diabetes CVD (cardiovascular disease) Social History Household Members: Spouse Housing: House Are you a primary hearing care practitioner to a significant other at home: No Do you presently have visiting nurse or other home services: No Alcohol intake: current Alcohol intake frequency: holidays/special occasions only Patient Tobacco Use Status: Former Tobacco user Quit Date: 2018 e-Cigarette/Vaping Use: Never Used Second Hand Smoke Exposure: No service: No Current occupational status: employed 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 The patient met all learning objectives and was able to verbalize understanding and provide teach back of education topics discussed . The patient was provided with the opportunity to ask questions and all questions were answered. Patient Assessment Assess patient education level/literacy/barriers Patient questions/concerns, patient reports he has had diabetes for the last 2 or 3 years. last A1c on 09/20/2023 8.5% patient is using TapFit Veronika 3 sensors, patient's sensor reader is on his 's phone since his smart phone is compatible so there is missing data patient is currently taking metformin 1000 mg b.i.d. Tresiba 50 units daily Mounjaro 5 mg weeky recommended to patient to increase Tresiba by 2-3 units every 3 days until fasting glucose levels are within 150 mg/dl What is Diabetes? Pathophysiology How the body produces and uses insulin Identify type of DM Risk factors Signs of Diabetes Brief overview of Diabetes Management Monitoring blood sugar Following a meal plan Regular exercise Maintaining a healthy weight Taking medication as needed Members of the care team (PCP, RN, MA, RD, CDE, purchase request editor) Blood glucose monitoring When/how often to test Target blood sugar ranges patient's average glucose for the past 2 weeks 250 mg/dL above target 92% within target 8% below target 0 % patient is only has 34% sensor usage Introduction to Nutrition Importance of healthy diet in managing DM Diet is personalized to individual preference Review patient?s regular diet/food preferences Who prepares meals/does food shopping/ Dining out?/ Barriers? How diet effects glucose Eating 3 balanced meals a day with small, healthy snacks between meals Review food groups Carbohydrates: What is a carbohydrate/Which food/food groups are considered carbohydrates Effect of carbohydrates on blood glucose Portion sizes Reading food labels Basic carb counting (if applicable per nursing assessment) Plate method Meal planning Recommendations: Follow plate method, consistent carbs and read nutritional labels. Smart Goal: patient will keep meals from 45-60 g of carbohydrate per meal Educational Materials: The patient was provided with the following written educational materials: Planning Healthy Meals Handout Patient Response to instructions: Comprehension of Instructions: Fair Readiness to make changes: Contemplation How confident they feel about making changes: Positive Patient Instructions: Include regular daily activity. ADA recommends 30 minutes of exercise 5 days a week. Weight loss talk to PCP or Family Physician before starting new plan. Test blood sugar as directed; Fasting and 2hpp largest meal. Watch trends in results. Utilize results and to assess how food, physical activity and medications affect blood sugar results. Bring glucometer or CGM to next visit. Be knowledgeable about diabetes medication, its action, side effects, efficacy, toxicity, prescribed dosage, appropriate timing and frequency of administration, effect of missed and delayed doses and instructions for storage, travel and safety. Problem solving techniques to monitor hypo/hyperglycemia episodes and treatments. Reduce risk reduction behaviors, smoking cessation, regular eye, foot and dental examinations. follow up with Diabetes Education nurse in3 months Coding Level of Care Code Est Pt Level 1 (78538) Diagnoses Type 2 diabetes mellitus without complication E11.9
== END 2023-11-01 11:38 | disposition home or self-care (01) ==
PROVIDERS: PCP Family Medicine; Visit Provider Registered Nurse Diabetes Educator
DX: E11.9 Type 2 diabetes mellitus without complications (principal)

== ENCOUNTER → 2023-11-01 10:40 | Outpatient (BNVA) | payer OTHER, SELFPAY | PROVIDERS: PCP Family Medicine; Visit Provider Registered Nurse Diabetes Educator | DX: E11.9 Type 2 diabetes mellitus without complications (principal) | CPT/HCPCS: 99211 ==

== ENCOUNTER 2024-01-04 09:50 | Outpatient (REF) | payer OTHER, SELFPAY ==
[2024-01-04 10:57] LABS: Appearance Urine Clear; Color Urine Yellow; Glucose Urine UA >=1000 mg/dL (Negative); Leukocyte Esterase Urine Negative (Negative); Nitrite Urine Negative (Negative); Specific Gravity - Urine 1.025 (1.005-1.025); UMIC TRIGGER UA YES; Urine Blood Negative (Negative); Urine Ketones Trace mg/dL (Negative); Urine Protein Negative (Neg-Trace)
[2024-01-04 11:02] LABS: Bacteria Urine None Seen (None Seen); Hyaline Casts Urine 0-2 /LPF (0-2); RBC Urine 0-2 /HPF (0-2); Squamous Epithelial Cell Urine 0-2 /HPF (0-2); WBC Urine 0-5 /HPF (0-5)
== END 2024-01-04 09:51 | disposition home or self-care (01) ==
LOC: HO.LAB 09:50
PROVIDERS: PCP Family Medicine; Visit Provider Family Medicine
DX: Z00.00 Encounter for general adult medical examination without abnormal findings (principal)
CPT/HCPCS: 81001

== ENCOUNTER 2024-01-06 08:00 | Outpatient (AMB) | payer OTHER, SELFPAY ==
[2024-01-06 08:08] VITALS: BP 132/74; PULSE 74; BMI 32.9
--- NOTE | 2024-01-06 08:08 | MHC.OFFVIS ---
Intake Vital Signs 01/06/24 08:08 Height 6 ft 2 in Weight 256 lb BMI 32.9 BP 132/74 Blood Pressure Location Lt brachial Position Sitting Pulse 74 Pulse Source Pulse Oximeter Intake Visit Reasons: [id number] Intake Note: Patient presents today to follow up on D2MT. Last Diabetic Eye exam:02/2023 Last Podiatry Visit:None Random Glucose: 228 mg/dl HgA1c: 9.0% Biomedical Photographer Required: No Accompanied by: Self / Same As Patient Allergies niacin Allergy (Mild, Verified 01/06/24 08:18) neuropathy s/s HPI HPI Comments History of Present Illness Details Patient is with DM type 2 diagnosed around 2011 , referred by Dr. Villeda for diabetes who presents for management of diabetes. Past medical history: DM2, HLD, HTN, ED, hypogonadism. Micro and macrovascular complications: none known Diabetes medications:, Tresiba 54 units , [id number] mg BID . Mounjaro 5 mg qwkly Symptoms reported: denies numbness, tingling, cramping in lower extremities Hypoglycemia: denies Hyperglycemia: denies urinary frequency, nocturia, polydypsia Blood glucose monitoring: Favery download shows the sensors active 63% of the time. Average glucose is 268 with G mi of 9.7% and variability 20.2%. 6% range with 94% hyperglycemia and no hypoglycemia. Pattern is downward trend overnight but increases post-- dinner Flying Squad Salesperson - CDE education: denies Spoon Maker: denies Ophthalmology evaluation: last visit 02/2023 Laboratory Tests 04/07/21 04/08/21 04/08/21 15:38 07:45 07:45 Creatinine 0.89 Estimated GFR > 60 Hgb A1c (Clinic) 10.0 H Triglycerides 167 Cholesterol 141 LDL Cholesterol, C alc 73 HDL Cholesterol 35 TSH 0.60 Microalb/Creat Rat io 04/08/21 07:45 Creatinine Estimated GFR Hgb A1c (Clinic) Triglycerides Cholesterol LDL Cholesterol, C alc HDL Cholesterol TSH Microalb/Creat Rat io 11.3 PFSH Medical History Diabetes type 2, uncontrolled Hyperlipidemia Hypertension Low testosterone Obesity due to excess calories Obstructive sleep apnea Surgical History Hx of colonoscopy History of total hip replacement Family History Father Cancer Stroke (cerebrum) Mother CVD (cardiovascular disease) Diabetes HTN (hypertension) Mental disorder Brother Diabetes CVD (cardiovascular disease) Social History Household Members: Spouse Housing: House Are you a primary pet care technician to a significant other at home: No Do you presently have visiting nurse or other home services: No Alcohol intake: current Alcohol intake frequency: holidays/special occasions only Patient Tobacco Use Status: Former Tobacco user Quit Date: 2018 e-Cigarette/Vaping Use: Never Used Second Hand Smoke Exposure: No service: No Current occupational status: employed 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 Absence of acromegalic features. Neck exam reveals nl size thyroid about 15 gms. No thyroid nodules palpable. No carotid bruits present. Lungs CTA. Heart S1 S2, Reg R/R. No M/R/ G. Skin exam reveals absence of vitiligo or acanthosis nigricans. Abdominal exam reveals Soft NT/ND with NA BS. No organomegaly present. Neck Other: . Extrem Other: Visual exam of foot performed. No ulcerations or open lesions. No onchomycosis, no callouses.Pulses 2 + distally Sensation intact to monofilament exam. Vibratory sensation sensed is decreaed with 128 Hz tuning fork Results AMB Hemoglobin A1c AMB Hemoglobin A1c 9.0 % Last Edit by NASREEN Tirado on 01/06/24 08:27 Results Reviewed Results Reviewed: Laboratory Last Values Glucose (Clinic) 228 mg/dL (60-115) H 01/06/24 08:15 Assessment & Plan Assessment & Plan (1) Diabetes type 2, uncontrolled: Code(s): E11.65 - Type 2 diabetes mellitus with hyperglycemia Plan: This is a 58-year-old white male with a history of type 2 diabetes being treated metformin , Mounjaro and basal insulin with poor glycemic control and no known microvascular or macrovascular complications. The plan is increase the Tresiba to 60 units and then by 10 units every 4 days to reach point of care in the morning of 150-200. I also increase the Mounjaro to 7.5 mg Q weekly. I also prescribed Humalog 8 units before dinner but will have the patient hold off until the affects of the increase in Mounjaro l does are seen. He has a follow-up appointment with the community educator in 2 weeks Orders: Orders AMB Hemoglobin A1c 07/01/23 E11.9 - Type 2 diabetes mellitus without complications, Z13.9 - Encounter for screening, unspecified Medications: New insulin lispro (Humalog KwikPen (U-100) Insulin) 8 units (0.08 mL) subcut TID 15 mL 5RF tirzepatide (Mounjaro) 7.5 mg (0.5 mL) subcut QWEEK 2 mL 5RF Discontinued tirzepatide (Mounjaro) Discontinued Reason: Doctor's Order 5 mg (0.5 mL) subcut QWEEK 2 mL 5RF Coding Level of Care Code Est Pt Level 4 (74165) Diagnoses Diabetes type 2, uncontrolled E11.65
[2024-01-06 08:20] LABS: Glucose, Whole Blood 228 mg/dL (60-115)
== END 2024-01-06 08:36 | disposition home or self-care (01) ==
PROVIDERS: PCP Family Medicine; Visit Provider Internal Medicine Endocrinology, Diabetes & Metabolism
DX: Z13.9 Encounter for screening, unspecified (principal); E11.9 Type 2 diabetes mellitus without complications; E11.65 Type 2 diabetes mellitus with hyperglycemia
CPT/HCPCS: 99214

== ENCOUNTER → 2024-01-06 08:00 | Outpatient (BNVA) | payer OTHER, SELFPAY | PROVIDERS: PCP Family Medicine; Visit Provider Internal Medicine Endocrinology, Diabetes & Metabolism | DX: E11.65 Type 2 diabetes mellitus with hyperglycemia (principal); Z79.4 Long term (current) use of insulin | CPT/HCPCS: 82947; 83036 ==

== ENCOUNTER 2024-03-30 08:33 | Outpatient (AMB) | payer OTHER, SELFPAY ==
[2024-03-30 08:36] VITALS: BP 130/72; PULSE 77; O2SAT 96; BMI 32.1
--- NOTE | 2024-03-30 08:36 | MHC.PC.OV ---
Vital Signs 03/30/24 08:36 Height 6 ft 2 in Weight 250 lb 4 oz BMI 32.1 BP 130/72 Blood Pressure Location Rt brachial Position Sitting Pulse 77 Pulse Source Pulse Oximeter Pulse Oximetry (%) 96 Oxygen Delivery Method Room Air Intake Visit Reasons: medication and diabetes Intake Note: Patient is here to follow up on medication and diabetes. He needs refill of ecscitalopram, needs sensor for Veronika 4. Allergies niacin Allergy (Mild, Verified 03/30/24 08:40) neuropathy s/s Medication List - Last Reconciled 03/30/24 by Octaviano Villeda MD amlodipine-benazepril 5-20 mg 1 cap PO BEDTIME 90 days atorvastatin 40 mg PO BEDTIME 90 days blood-glucose sensor ([employer] Veronika 3 Sensor device) As directed change every 2 wks bupropion HCl SR 200 mg PO DAILY 90 days escitalopram oxalate 20 mg PO BEDTIME 30 days insulin lispro (Humalog KwikPen (U-100) Insulin) 8 units (0.08 mL) subcut TID metformin 1,000 mg (2 x 500 mg) PO BID 90 days pen needle, diabetic BID tadalafil (Cialis) 20 mg PO DAILY PRN tirzepatide (Mounjaro) 7.5 mg (0.5 mL) subcut QWEEK Tresiba FlexTouch U-200 (insulin degludec) 76 units (0.38 mL) subcut BEDTIME NS Tobacco use date assessed: 03/30/24 Dental Screening Dental Screen Date: 03/30/24 Did you have a dental visit in the last 12 months?: No Did you have a dental problem in the last 6 months where you did not have access to dental care?: No Was dental information given to patient?: Patient declined HPI medication and diabetes HPI Details Patient?presents?to?follow-up?diabetes. Has?now?seen??Vijay?who?adjusted?his?regimen [facility] Medical History Obesity due to excess calories Diabetes type 2, uncontrolled Low testosterone Hyperlipidemia Hypertension Obstructive sleep apnea Surgical History Hx of colonoscopy History of total hip replacement Family History Father Cancer Stroke (cerebrum) Mother CVD (cardiovascular disease) Diabetes HTN (hypertension) Mental disorder Brother Diabetes CVD (cardiovascular disease) Social History Household Members: Spouse Housing: House Are you a primary childcare teacher to a significant other at home: No Do you presently have visiting nurse or other home services: No Alcohol intake: current Alcohol intake frequency: holidays/special occasions only Patient Tobacco Use Status: Former Tobacco user Quit Date: 2018 e-Cigarette/Vaping Use: Never Used Second Hand Smoke Exposure: No service: No Current occupational status: employed Current occupation: [employer]. Current occupational exposures/hazards: No Cognitive needs: No Hearing needs: No Vision needs: No Questionnaire Thrive Questionnaire Date Thrive assessed: 12/16/22 WOO-7 AMB Questionnaire WOO-7 Date WOO - 7 assessed: 09/16/23 Source: Developed by Drs. Raul Finch, Chiquis Cobos, Rodney Lamar and colleagues, with an educational shant from [employer]. Review of Systems Const Denies chills, Denies fatigue, Denies fever(s), Denies headache(s) and Denies weakness ENT Denies dizziness and Denies headache(s) Card Denies chest pain, Denies lightheadedness, Denies dyspnea and Denies other (Palpitations) Resp Denies cough, Denies dyspnea, Denies wheezing and Denies other ( shortness of breath) Musc Denies numbness and Denies tingling Neuro Denies dizziness, Denies headache(s), Denies numbness, Denies tingling, Denies paresthesias and Denies weakness Psych Denies anxiety and Denies depression Endo Denies fatigue Aller/Immun Denies wheezing Physical exam (Primary Care) Vital Signs: Last Vital Signs Pulse 77 03/30/24 08:36 BP 130/72 03/30/24 08:36 Pulse Ox 96 03/30/24 08:36 Oxygen Delivery Method Room Air 03/30/24 08:36 BMI result Body Mass Index 32.1 Tobacco/Smoking Status: Tobacco use Status Tobacco use date assessed 03/30/24 03/30/24 08:42 Patient Tobacco Use Status Former Tobacco user 03/30/24 08:42 e-Cigarette/Vaping Use Never Used 03/30/24 08:42 Thrive Assessment: Date of Thrive Assessment Date Thrive assessed 12/16/22 03/30/24 08:42 Const General: no acute distress and well developed Nutritional Appearance: well nourished Orientation/consciousness: patient oriented x3 [facility] Head: Yes normocephalic and Yes atraumatic Eyes General: appearance normal, both eyes and all related structures Pupils: Equal, round and reactive pupils present EOM: EOMs intact bilaterally Resp Effort & Inspection: normal respiratory effort Auscultation: clear to auscultation bilaterally Cardio Rate: regular rate Rhythm: regular rhythm Heart sounds: S1 normal heart sound present, S2 normal heart sound present, no gallops, no murmurs and no rubs Neuro General: patient oriented x3 and gait normal Cranial nerves: Yes Equal, round and reactive pupils present Psych Affect: normal affect Results AMB Hemoglobin A1c AMB Hemoglobin A1c 9.2 % Last Edit by Chioma Allison CMA on 03/30/24 08:54 Results Reviewed Results Reviewed: Laboratory Last Values Hgb A1c (Clinic) 9.2 % (4.0-6.0) H 03/30/24 08:51 Assessment and Plan Assessment & Plan (1) Diabetes type 2, uncontrolled: Code(s): E11.65 - Type 2 diabetes mellitus with hyperglycemia Plan: Recently?saw?Endocrine?and?Patient?was?instructed?to increase the Tresiba to 60 units and then by 10 units every 4 days to reach point of care in the morning of 150-200. I also increase the Mounjaro to 7.5 mg Q weekly. I also prescribed Humalog 8 units before dinner but will have the patient hold off until the affects of the increase in Mounjaro l does are seen. Patient?says?he?is?unable?to?take?Humalog?at?work?so?is?skipping?morning?and?lunch?prandial?insulins. Will?give?him?glipizide?for?these. He?can?follow-up?with?his?government program manager?for?further?instructions?regarding?this. He?is?also?uncertain?if?he?has?Trulicity?or?Mounjaro.??He?will?look?into?this?and?continue?taking?his?weekly?medication. I?have?asked?him?to?bring?in?his?medications?to?his?next?visit. Increase Tresiba to 80 units daily Always check morning blood sugars by Veronika or by fingerstick Goal is to get your morning blood sugars consistently under 150 Use glipizide 10-15 minutes prior to breakfast and lunch. Do not skip meals but if you must, you can hold off on taking the glipizide for that mealtime. Take Humalog 8 units, 10 minutes before your evening meal. Take your weekly shot each week. Dr. Linares has switch this to Mounjaro. If you do not have this yet, take Trulicity. Call for recurrent low blood sugars. Close [id number] schedule you in 1 month Orders: Orders AMB Hemoglobin A1c Today Z13.9 - Encounter for screening, unspecified Medications: New glipizide Take 15 min before breakfast & Lunch 5 mg PO BID 30 days 60 tabs 2RF Changed From Tresiba FlexTouch U-200 (insulin degludec) 76 units (0.38 mL) subcut BEDTIME 9 mL 5RF NS To Tresiba FlexTouch U-200 (insulin degludec) 80 units (0.4 mL) subcut BEDTIME 30 days 12 mL 5RF NS Refilled escitalopram oxalate 20 mg PO BEDTIME 30 days 30 tabs 3RF Coding Level of Care Code Est Pt Level 3 (52823) Diagnoses Diabetes type 2, uncontrolled E11.65
== END 2024-03-30 09:36 | disposition home or self-care (01) ==
PROVIDERS: PCP Family Medicine; Visit Provider Family Medicine
DX: E11.65 Type 2 diabetes mellitus with hyperglycemia (principal)
CPT/HCPCS: 83036; 99213

== ENCOUNTER 2024-05-04 08:04 | Outpatient (AMB) | payer OTHER, SELFPAY ==
[2024-05-04 08:05] VITALS: BP 122/72; PULSE 75; BMI 31.8
--- NOTE | 2024-05-04 08:05 | MHC.OFFVIS ---
Vital Signs 05/04/24 08:05 Height 6 ft 2 in Weight 248 lb 0.321 oz BMI 31.8 BP 122/72 Blood Pressure Location Lt brachial Position Sitting Pulse 75 Pulse Source Pulse Oximeter Intake Visit Reasons: [id number] Intake Note: Patient presents today to follow up on D2MT. Last Diabetic Eye exam: 05/2023 Last Podiatry Visit:Doesn't have one Random Glucose: 93 mg/dl HgA1c: 9.2% 03/30/24 Manager Heart Failure Required: No Accompanied by: Self / Same As Patient Allergies niacin Allergy (Mild, Verified 05/04/24 08:11) neuropathy s/s HPI Comments Details: Patient is with DM type 2 diagnosed around 2011 , referred by Dr. Villeda for diabetes who presents for management of diabetes. Past medical history: DM2, HLD, HTN, ED, hypogonadism. Micro and macrovascular complications: none known Diabetes medications:, Tresiba 80 units lispro 8 units TID , [id number] mg BID . Trulicity 3 mg qwkly Glipizide (Not taking) Symptoms reported: denies numbness, tingling, cramping in lower extremities Hypoglycemia: denies Hyperglycemia: denies urinary frequency, nocturia, polydypsia Blood glucose monitoring: Visual Pro 360 download shows the sensors active 95% of the time. Average glucose is 177 with G mi of 7.5 and variability 33%. 61% range with 39% hyperglycemia and no hypoglycemia. Pattern is increase his post-prandially Vehicle Calibration Engineer - CDE education: denies Sports Attorney: denies Ophthalmology evaluation: appt next mo Laboratory Tests 04/07/21 04/08/21 04/08/21 15:38 07:45 07:45 Creatinine 0.89 Estimated GFR > 60 Hgb A1c (Clinic) 10.0 H Triglycerides 167 Cholesterol 141 LDL Cholesterol, Calc 73 HDL Cholesterol 35 TSH 0.60 Microalb/Creat Ratio 04/08/21 07:45 Creatinine Estimated GFR Hgb A1c (Clinic) Triglycerides Cholesterol LDL Cholesterol, Calc HDL Cholesterol TSH Microalb/Creat Ratio 11.3 PFSH Medical History Obesity due to excess calories Diabetes type 2, uncontrolled Low testosterone Hyperlipidemia Hypertension Obstructive sleep apnea Surgical History Hx of colonoscopy History of total hip replacement Family History Father Cancer Stroke (cerebrum) Mother CVD (cardiovascular disease) Diabetes HTN (hypertension) Mental disorder Brother Diabetes CVD (cardiovascular disease) Social History Household Members: Spouse Housing: House Are you a primary patient care provider to a significant other at home: No Do you presently have visiting nurse or other home services: No Alcohol intake: current Alcohol intake frequency: holidays/special occasions only Patient Tobacco Use Status: Former Tobacco user e-Cigarette/Vaping Use: Never Used Second Hand Smoke Exposure: No service: No Current occupational status: employed Current occupation: [employer]. Current occupational exposures/hazards: No Cognitive needs: No Hearing needs: No Vision needs: No Physical Exam Vital Signs: Last Vital Signs Pulse 75 05/04/24 08:05 BP 122/72 05/04/24 08:05 BMI result Body Mass Index 31.8 Absence of Cushingoid features. Absence of acromegalic features. Neck exam reveals nl size thyroid about 15 gms. No thyroid nodules palpable. No carotid bruits present. Lungs CTA. Heart S1 S2, Reg R/R. No M/R/ G. Skin exam reveals absence of vitiligo or acanthosis nigricans. Abdominal exam reveals Soft NT/ND with NA BS. No organomegaly present. Neck Other: . Extrem Other: Visual exam of foot performed. No ulcerations or open lesions. No onchomycosis, no callouses.Pulses 2 + distally Sensation intact to monofilament exam. Vibratory sensation sensed is decreaed with 128 Hz tuning fork Results Reviewed Results Reviewed: Laboratory Last Values Glucose (Clinic) 93 mg/dL (60-115) 05/04/24 08:14 Assessment & Plan Assessment & Plan (1) Diabetes type 2, uncontrolled: Code(s): E11.65 - Type 2 diabetes mellitus with hyperglycemia Category: Medical Plan: This is a 58-year-old white male with a history of type 2 diabetes being treated metformin , Trulicity and basal insulin with poor glycemic control and no known microvascular or macrovascular complications. The plan is have pt take the Humalog prior to meals. Will talk to patient about starting a CeQur device as he is having difficulty with the insulin pens. He will see the certified adaptive physical educator today to learn more about the device. . Coding Level of Care Code Est Pt Level 4 (60696) Diagnoses Diabetes type 2, uncontrolled E11.65
[2024-05-04 08:19] LABS: Glucose, Whole Blood 93 mg/dL (60-115)
== END 2024-05-04 09:21 | disposition home or self-care (01) ==
PROVIDERS: PCP Family Medicine; Visit Provider Internal Medicine Endocrinology, Diabetes & Metabolism
DX: E11.65 Type 2 diabetes mellitus with hyperglycemia (principal)
CPT/HCPCS: 99214

== ENCOUNTER → 2024-05-04 08:04 | Outpatient (BNVA) | payer OTHER, SELFPAY | PROVIDERS: PCP Family Medicine; Visit Provider Internal Medicine Endocrinology, Diabetes & Metabolism | DX: E11.65 Type 2 diabetes mellitus with hyperglycemia (principal) | CPT/HCPCS: 82947; 99211 ==

== ENCOUNTER 2024-05-04 08:48 | Outpatient (AMB) | payer OTHER, SELFPAY ==
--- NOTE | 2024-05-04 08:56 | MHC.AMDMED ---
Intake Intake Visit Reasons: T2DM Quality Lab Technician Required: No Accompanied by: Self / Same As Patient Allergies niacin Allergy (Mild, Verified 05/04/24 08:11) neuropathy s/s HPI Comprehensive Diabetes Asmnt Most Recent Diabetes Results: Hemoglobin A1c 11.0 % 04/20/20 Microalb/Creat Ratio 11.4 ug/mg cr (<30) 10/27/23 Cholesterol 127 mg/dL (<200) 10/27/23 HDL Cholesterol 37 mg/dL (>40) L 10/27/23 Triglycerides 136 mg/dL (<150) 10/27/23 Creatinine 0.84 mg/dL (0.5-1.4) 10/27/23 Blood Urea Nitrogen 17 mg/dL (9-16) H 10/27/23 Sodium 137 mmol/L (135-145) 10/27/23 Potassium 4.4 mmol/L (3.3-5.1) 10/27/23 Chloride 100 mmol/L (96-108) 10/27/23 Carbon Dioxide 26 mmol/L (22-29) 10/27/23 Calcium 9.7 mg/dL (8.4-10.2) 10/27/23 AST 14 U/L (5-37) 10/27/23 ALT 18 U/L (0-40) 10/27/23 Total Protein 7.6 g/dL (6.5-8.0) 10/27/23 Albumin 4.4 g/dL (3.5-5.0) 10/27/23 [facility] Medical History Obesity due to excess calories Diabetes type 2, uncontrolled Low testosterone Hyperlipidemia Hypertension Obstructive sleep apnea Surgical History Hx of colonoscopy History of total hip replacement Family History Father Cancer Stroke (cerebrum) Mother CVD (cardiovascular disease) Diabetes HTN (hypertension) Mental disorder Brother Diabetes CVD (cardiovascular disease) Social History Household Members: Spouse Housing: House Are you a primary special needs child caregiver to a significant other at home: No Do you presently have visiting nurse or other home services: No Alcohol intake: current Alcohol intake frequency: holidays/special occasions only Patient Tobacco Use Status: Former Tobacco user e-Cigarette/Vaping Use: Never Used Second Hand Smoke Exposure: No service: No Current occupational status: employed Current occupation: [employer]. Current occupational exposures/hazards: No Cognitive needs: No Hearing needs: No Vision needs: No Assessment & Plan Assessment & Plan (1) Diabetes type 2, uncontrolled: Code(s): E11.65 - Type 2 diabetes mellitus with hyperglycemia Plan: Pt at visit for CeQue Simplicity Information Showed Pt the CeQue patch, piano refinisher, vial of mealtime insulin and change by stickers Discussed with Pt how to fill syringe from vial, and insert, needle to fill patch How to prepare site where you will place patch with either alcohol or soap and water, avoid waist band and belt line Do not insert through scar tissue, piercings and tattoos be sure to place patch at least 2 in from belly button. If you have excess body hair adhesive will attach better to clean shaven skin Instructed patient to be sure to rotate patch regularly Instructed patient on how to administer mealtime insulin, instructed patient that each click is equal to 2 units of mealtime insulin Patient will follow-up with product marketer as instructed Portions of this note were created using voice recognition software, please excuse any words or phrases that may have been misinterpreted. Coding Level of Care Code Est Pt Level 1 (66008) Diagnoses Diabetes type 2, uncontrolled E11.65
== END 2024-05-04 09:52 | disposition home or self-care (01) ==
PROVIDERS: PCP Family Medicine; Visit Provider Registered Nurse Diabetes Educator
DX: E11.65 Type 2 diabetes mellitus with hyperglycemia (principal)

== ENCOUNTER 2024-08-02 14:41 | Outpatient (AMB) | payer OTHER, SELFPAY ==
--- NOTE | 2024-08-02 15:17 | MHC.PC.OV ---
Vital Signs 08/02/24 15:18 Height 6 ft 2 in Weight 250 lb BMI 32.1 BP 100/70 Blood Pressure Location Lt brachial Position Sitting Respiration 16 Pulse 85 Pulse Source Pulse Oximeter Temp 98.5 F Temp Source Tympanic Pulse Oximetry (%) 95 Oxygen Delivery Method Room Air Intake Visit Reasons: med follow up Intake Note: med follow up Allergies niacin Allergy (Mild, Verified 08/02/24 15:17) neuropathy s/s Medication List - Last Reconciled 08/02/24 by Octaviano Villeda MD amlodipine-benazepril 5-20 mg 1 cap PO BEDTIME 90 days atorvastatin 40 mg PO BEDTIME 90 days blood-glucose meter,continuous (FreeStyle Veronika 3 Mylo) As directed blood-glucose sensor (FreeStyle Veronika 3 Sensor device) As directed change every 2 wks bupropion HCl SR 200 mg PO DAILY 90 days escitalopram oxalate 20 mg PO BEDTIME 30 days glipizide 5 mg PO BID 30 days insulin lispro (Humalog KwikPen (U-100) Insulin) 8 units (0.08 mL) subcut TID metformin 1,000 mg (2 x 500 mg) PO BID 90 days pen needle, diabetic BID tadalafil (Cialis) 20 mg PO DAILY PRN tirzepatide (Mounjaro) 7.5 mg (0.5 mL) subcut QWEEK Tresiba FlexTouch U-200 (insulin degludec) 80 units (0.4 mL) subcut BEDTIME 30 days NS Tobacco use date assessed: 03/30/24 Dental Screening Dental Screen Date: 03/30/24 HPI med follow up HPI Details 58 y/o male presents to f/u diabetes, chronic conditions. Had last seen endocrinology 05/04/24. They planned to have pt take Humalog prior to meals and referred him to diabetic education. A1c today 08/02/24 is 7.6% which is much improved. Average blood sugar of 169 last 7 days. Morning blood sugars in the 90s-140s. He states he has not been taking glipizide. He usually skips breakfast. He has lunch consistently. He does not take Humalog at work. He f/u with endocrinology later this month. Blood pressure today 100/70, 85p. He is on amlodipine-benazepril 5-20mg. HPI Comments History of Present Illness Details Documentation assistance for Octaviano Villeda MD, was provided by Pepe Jane,? News Clipping Cutter on 08/02/2024 at 3:55 PM EST. I, Dr. Villeda, have read, observed, and verified documentation. [facility] Medical History Obesity due to excess calories Diabetes type 2, uncontrolled Low testosterone Hyperlipidemia Hypertension Obstructive sleep apnea Surgical History Hx of colonoscopy History of total hip replacement Family History Father Cancer Stroke (cerebrum) Mother CVD (cardiovascular disease) Diabetes HTN (hypertension) Mental disorder Brother Diabetes CVD (cardiovascular disease) Social History Household Members: Spouse Housing: House Are you a primary hospice care consultant to a significant other at home: No Do you presently have visiting nurse or other home services: No Alcohol intake: current Alcohol intake frequency: holidays/special occasions only Patient Tobacco Use Status: Former Tobacco user e-Cigarette/Vaping Use: Never Used Second Hand Smoke Exposure: No service: No Current occupational status: employed Current occupation: [employer]. Current occupational exposures/hazards: No Cognitive needs: No Hearing needs: No Vision needs: No Questionnaire Thrive Questionnaire Date Thrive assessed: 12/16/22 WOO-7 AMB Questionnaire WOO-7 Date WOO - 7 assessed: 09/16/23 Source: Developed by Drs. Raul Finch, Chiquis Cobos, Rodney Lamar and colleagues, with an educational shant from [employer]. Review of Systems Const Denies chills, Denies fatigue, Denies fever(s), Denies headache(s) and Denies weakness ENT Denies dizziness and Denies headache(s) Card Denies dyspnea Resp Denies cough, Denies dyspnea, Denies wheezing and Denies other (shortness of breath) Musc Denies numbness and Denies tingling Neuro Denies dizziness, Denies headache(s), Denies numbness, Denies tingling and Denies weakness Psych Denies anxiety and Denies depression Endo Denies fatigue Aller/Immun Denies wheezing Physical exam (Primary Care) Vital Signs: Last Vital Signs Temp 98.5 F 08/02/24 15:18 Pulse 85 08/02/24 15:18 Resp 16 08/02/24 15:18 BP 100/70 08/02/24 15:18 Pulse Ox 95 08/02/24 15:18 Oxygen Delivery Method Room Air 08/02/24 15:18 BMI result Body Mass Index 32.1 Tobacco/Smoking Status: Tobacco use Status Tobacco use date assessed 03/30/24 08/02/24 15:22 Patient Tobacco Use Status Former Tobacco user 08/02/24 15:22 e-Cigarette/Vaping Use Never Used 08/02/24 15:22 Thrive Assessment: Date of Thrive Assessment Date Thrive assessed 12/16/22 08/02/24 15:22 Const General: well developed; No acute distress Nutritional Appearance: well nourished Orientation/consciousness: patient oriented x3 HENMT Head: Yes normocephalic and Yes atraumatic Eyes General: appearance normal, both eyes and all related structures Pupils: Equal, round and reactive pupils present EOM: EOMs intact bilaterally Resp Effort & Inspection: normal respiratory effort Neuro General: patient oriented x3 and gait normal Cranial nerves: Yes Equal, round and reactive pupils present Psych Affect: normal affect Assessment and Plan Assessment & Plan (1) Diabetes type 2, uncontrolled: Code(s): E11.65 - Type 2 diabetes mellitus with hyperglycemia Plan: A1c?today?is?7.6%.??Much?improved.??Goal?is?less?than?7.0% No?change?to?medication?regimen?today Follow-up?with?endocrinology (2) Hypertension: Code(s): I10 - Essential (primary) hypertension Plan: Blood?pressure?is?controlled.??Goal?is?less?than?140/90 Continue?current?medication?regimen Coding Level of Care Code Est Pt Level 3 (66024) Diagnoses Diabetes type 2, uncontrolled E11.65 Hypertension I10
[2024-08-02 15:18] VITALS: BP 100/70; PULSE 85; RESP 16; TEMP 36.9; O2SAT 95; BMI 32.1
== END 2024-08-02 16:32 | disposition home or self-care (01) ==
PROVIDERS: PCP Family Medicine; Visit Provider Family Medicine
DX: E11.65 Type 2 diabetes mellitus with hyperglycemia (principal); I10 Essential (primary) hypertension
CPT/HCPCS: 99213

== ENCOUNTER 2024-08-15 15:02 | Outpatient (AMB) | payer OTHER, SELFPAY ==
--- NOTE | 2024-08-15 13:59 | A.OFFVIS_ITS ---
Vital Signs 08/15/24 15:16 Height 6 ft 2 in Weight 255 lb 11.779 oz BMI 32.8 BP 122/80 Blood Pressure Location Rt brachial Position Sitting Pulse 82 Pulse Source Pulse Oximeter Intake Visit Reasons: Diabetes Mellitus/CONFIRMED Intake Note: Patient presents today to re-establish treatment for Type 2 Diabetes Mellitus: Last Diabetic eye exam was on: 07/12/2024, [facility] Last Podiatry exam was on: Does not see a Wire Stitcher Most recent HbA1c: 7.6%, 08/15/2024 Random Glucose- 131 mg/dL, Today Pool Hall Inspector Required: No Accompanied by: Self / Same As Patient Allergies niacin Allergy (Mild, Verified 08/15/24 15:13) neuropathy s/s HPI Comments Details: Patient is with DM type 2 diagnosed approx 2011 who presents for management of diabetes. He was last seen by Dr. Linares and Didi LION in April and was recommended to start on a CeQur insulin patch for premeal bolus insulin. Hgb A1C 08/02/24 was 7.6% down from 9.2% 03/2024. Past medical history: DM2, HLD, HTN, ED, hypogonadism. Micro and macrovascular complications: none known Was on glipizide in the past which was ineffective, was on Trulicity 3mg weekly but was unable to obtain Diabetes medications: Tresiba 80 units daily lispro 8 units TID (does not remember to take, so has not been taking) metformin 1000 mg BID Trulicity 3.0 mg weekly Blood glucose monitoring: Freestyle yuko sensor 3 average glucose: 171 14 day continuous glucose sensor report reviewed Glucose Management indicator 7.4 % Time CGM active 98 % TIme in ranges: Nine % very high (above 250) 29 % high (181-250) 62 % in range (70-180] 0 % low (69-55) 0 % very low (below 54) 29.6 Glucose variability (target <36%) Interpretation of CGMS [readings overall 30 points above target with bumping glucose after lunch and more substantially rising from 18:00 to midnight ] 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 Prior Imaging [none] Action Plan: [] rescreen two years from date of screening labs[10/2025 ] IRIS: ordered 08/15/24 BNP: ordered 08/15/24 PFSH Medical History Obesity due to excess calories Diabetes type 2, uncontrolled Low testosterone Hyperlipidemia Hypertension Obstructive sleep apnea Surgical History Hx of colonoscopy History of total hip replacement Family History Father Cancer Stroke (cerebrum) Mother CVD (cardiovascular disease) Diabetes HTN (hypertension) Mental disorder Brother Diabetes CVD (cardiovascular disease) Social History Household Members: Spouse Housing: House Are you a primary critical care nurse practitioner to a significant other at home: No Do you presently have visiting nurse or other home services: No Alcohol intake: current Alcohol intake frequency: holidays/special occasions only Patient Tobacco Use Status: Former Tobacco user e-Cigarette/Vaping Use: Never Used Second Hand Smoke Exposure: No service: No Current occupational status: employed Current occupation: [employer]. Current occupational exposures/hazards: No Cognitive needs: No Hearing needs: No Vision needs: No Physical Exam Vital Signs: Last Vital Signs Pulse 82 08/15/24 15:16 BP 122/80 08/15/24 15:16 BMI result Body Mass Index 32.8 Const Other: Absence of Cushingoid features. Absence of acromegalic features. Neck exam reveals nl size thyroid about 15 gms. No thyroid nodules palpable. Heart S1 S2, Reg R/R. No M/R G. Skin exam reveals absence of vitiligo or acanthosis nigricans. No edema Visual exam of foot performed. No ulcerations or open lesions. No inter digit maceration or fissuring. No onychomycosis, no callouses. Sensation intact to monofilament exam. Vibratory sensation is normal with 128 Hz tuning fork. Office Procedures Glucose Monitoring Details Details: see [facility] [id number] - Glucose monitoring, continuous-physician I&R Procedure code (CPT) selection complete Results AMB Hemoglobin A1c AMB Hemoglobin A1c 7.6 % Last Edit by NASREEN Montoya on 08/15/24 15:37 Results Reviewed Results Reviewed: Laboratory Last Values Glucose (Clinic) 131 mg/dL (60-115) H 08/15/24 15:21 Hgb A1c (Clinic) 7.6 % (4.0-6.0) H 08/15/24 15:13 Laboratory Tests 09/20/23 10/27/23 10/27/23 10:12 09:46 09:50 Plt Count 254 Creatinine 0.84 Estimated GFR > 60 Hgb A1c (Clinic) 8.5 H AST 14 ALT 18 Cholesterol 127 LDL Cholesterol, Calc 63 HDL Cholesterol 37 L Urine Microalbumin 16.0 01/06/24 03/30/24 08:26 08:51 Plt Count Creatinine Estimated GFR Hgb A1c (Clinic) 9.0 H 9.2 H AST ALT Cholesterol LDL Cholesterol, Calc HDL Cholesterol Urine Microalbumin Assessment & Plan Assessment & Plan (1) Diabetes type 2, uncontrolled: Code(s): E11.65 - Type 2 diabetes mellitus with hyperglycemia Category: Medical Qualifiers: Glycemic state: with hyperglycemia Qualified Code(s): E11.65 - Type 2 diabetes mellitus with hyperglycemia Plan: This is a 59-year-old white male with a history of type 2 diabetes being treated metformin,Mounjaro and basal/bolus insulin with improving glycemic control and no known microvascular or macrovascular complications. A1C is 7.6% today in the office. He has a target of 7% based on age, co morbidities and would like optimum control in order to get approved for hip replacement surgery. He has difficulty remembering to bolus pre meal and has difficulty at work getting away to inject insulin. Will send prescription for cequr insulin patch 4 day, toys inspector ad vial of insulin. He has been trained on this in the past and will also reach out to company rep for additional training. BNP and has orders from pcp for blood work and urine test. (2) Peripheral arterial disease: Code(s): I73.9 - Peripheral vascular disease, unspecified Plan: iris ordered to rule out Orders: Orders AMB Glucose Monitoring Today E11.65 - Type 2 diabetes mellitus with hyperglycemia B Type Natriuretic Peptide Today E11.65 - Type 2 diabetes mellitus with hyperglycemia AMB Glucose Monitoring Today E11.65 - Type 2 diabetes mellitus with hyperglycemia AMB Hemoglobin A1c Today E11.65 - Type 2 diabetes mellitus with hyperglycemia, I73.9 - Peripheral vascular disease, unspecified US IRIS complete Today I73.9 - Peripheral vascular disease, unspecified Medications: New Trulicity (dulaglutide) 3 mg (0.5 mL) subcut QWEEK 2 mL 11RF NS E11.65 - Type 2 diabetes mellitus with hyperglycemia bolus insulin pump, 200 unit (CeQur Simplicity) As directed 4 clicks (8 units) twice daily breakfast and supper change every 4 days 10 ea 11RF CeQur Simplicity 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 (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, [employer] As directed for use with cequr insulin patch 1 ea 1RF NS insulin lispro 8 units (4clicks on Cequr) for breakfast and supper subcutaneously use as directed; 30 days 10 mL 0RF Discontinued glipizide Take 15 min before breakfast & Lunch Discontinued Reason: Doctor's Order 5 mg PO BID 30 days 60 tabs 2RF Coding Level of Care Code Est Pt Level 4 (42687) Diagnoses Uncontrolled type 2 diabetes mellitus with hyperglycemia E11.65 Glycemic state: with hyperglycemia Peripheral arterial disease I73.9 CPT Codes Details - CPT: 55835 - Glucose monitoring, continuous-physician I&R ([id number])
[2024-08-15 15:16] VITALS: BP 122/80; PULSE 82; BMI 32.8
[2024-08-15 15:25] LABS: Glucose, Whole Blood 131 mg/dL (60-115)
== END 2024-08-15 15:45 | disposition home or self-care (01) ==
PROVIDERS: PCP Family Medicine; Visit Provider Nurse Practitioner Adult Health
DX: E11.65 Type 2 diabetes mellitus with hyperglycemia (principal); I73.9 Peripheral vascular disease, unspecified
CPT/HCPCS: 95251; 99214

== ENCOUNTER → 2024-08-15 15:02 | Outpatient (BNVA) | payer OTHER, SELFPAY | PROVIDERS: PCP Family Medicine; Visit Provider Nurse Practitioner Adult Health | DX: E11.65 Type 2 diabetes mellitus with hyperglycemia (principal); I73.9 Peripheral vascular disease, unspecified | CPT/HCPCS: 82947; 83036 ==

== ENCOUNTER 2024-10-30 14:52 | Outpatient (AMB) | payer OTHER, SELFPAY ==
--- NOTE | 2024-10-30 15:28 | MHC.PC.OV ---
Vital Signs 10/30/24 15:39 Height 6 ft 2 in Weight 254 lb 4 oz BMI 32.6 BP 120/70 Blood Pressure Location Rt brachial Position Sitting Respiration 16 Pulse 87 Pulse Source Pulse Oximeter Pulse Oximetry (%) 96 Oxygen Delivery Method Room Air Intake Visit Reasons: f/u diabetes, chronic conditions Intake Note: f/u DM and chronic conditions Allergies niacin Allergy (Mild, Verified 10/30/24 15:37) neuropathy s/s Medication List - Last Reconciled 10/30/24 by Octaviano Villeda MD amlodipine-benazepril 5-20 mg 1 cap PO BEDTIME 90 days atorvastatin 40 mg PO BEDTIME 90 days blood-glucose meter,continuous (FreeStyle Veronika 3 [place]) As directed blood-glucose sensor (FreeStyle Veronika 3 Sensor device) As directed change every 2 wks bolus insulin pump, 200 unit (CeQur Simplicity) As directed 4 clicks (8 units) twice daily breakfast and supper change every 4 days bupropion HCl SR 200 mg PO DAILY 90 days CeQur Simplicity Field Aide (diabetic supplies, [employer].) As directed for use with cequr insulin patch NS escitalopram oxalate 20 mg PO BEDTIME 30 days insulin lispro (Humalog KwikPen (U-100) Insulin) 8 units (0.08 mL) subcut TID insulin lispro 8 units (4clicks on Cequr) for breakfast and supper subcutaneously use as directed; 30 days metformin 1,000 mg (2 x 500 mg) PO BID 90 days pen needle, diabetic BID tadalafil (Cialis) 20 mg PO DAILY PRN Tresiba FlexTouch U-200 (insulin degludec) 80 units (0.4 mL) subcut BEDTIME 30 days NS Trulicity (dulaglutide) 3 mg (0.5 mL) subcut QWEEK NS Tobacco use date assessed: 03/30/24 Dental Screening Dental Screen Date: 03/30/24 HPI f/u diabetes, chronic conditions HPI Details 59 y/o male presents to f/u diabetes, HTN, chronic conditions. Last A1c 08/02/24 7.6% which had much improved. A1c today 10/30/24 is 8.3%. He is on tresiba 80 units, Trulicity, lispro, metformin. Notes he has not had his tresiba in 5 days. He notes morning blood sugars have been in the 110s-130s. Shoots up to 240s during meal time but states it goes back down throughout the day. Sees Dr. Linares again in about a week. He reports hand pain and has been taking ibuprofen and acetaminophen. Recent eye exam which showed some retinal changes. [facility] Medical History Obesity due to excess calories Diabetes type 2, uncontrolled Low testosterone Hyperlipidemia Hypertension Obstructive sleep apnea Surgical History Hx of colonoscopy History of total hip replacement Family History Father Cancer Stroke (cerebrum) Mother CVD (cardiovascular disease) Diabetes HTN (hypertension) Mental disorder Brother Diabetes CVD (cardiovascular disease) Social History Household Members: Spouse Housing: House Are you a primary pharmacy customer care specialist to a significant other at home: No Do you presently have visiting nurse or other home services: No Alcohol intake: current Alcohol intake frequency: holidays/special occasions only Patient Tobacco Use Status: Former Tobacco user e-Cigarette/Vaping Use: Never Used Second Hand Smoke Exposure: No service: No Current occupational status: employed Current occupation: [employer]. Current occupational exposures/hazards: No Cognitive needs: No Hearing needs: No Vision needs: No Questionnaire PHQ-9 Over the last 2 weeks, how often have you been bothered by any of the following problems? 1. Little interest or pleasure in doing things: not at all 2. Feeling down, depressed, or hopeless: not at all 3. Trouble falling or staying asleep, or sleeping too much: not at all 4. Feeling tired or having little energy: several days 5. Poor appetite or overeating: several days 6. Feeling bad about yourself - or that you are a failure or have let yourself or your family down: not at all 7. Trouble concentrating on things, such as reading the newspaper or watching television: not at all 8. Moving or speaking so slowly that other people could have noticed. Or the opposite - being so fidgety or restless that you have been moving around a lot more than usual: not at all 9. Thoughts that you would be better off or of hurting yourself in some way: not at all Total score: 2 Source: Developed by Drs. Raul Finch, Chiquis Cobos, Rodney Lamar and colleagues, with an educational shant from [employer]. Thrive Questionnaire Date Thrive assessed: 12/16/22 I am a: Patient What is your living situation today?: I have a steady place to live Within the past 12 months, did the food you bought not last and you didn't have the money to get more?: Often true Within the past 12 months, did you worry whether your food would run out before you got money to buy more?: Never true Do you have trouble paying for medicines?: No Do you have trouble getting transportation to medical appointments?: No Do you have trouble paying your heating and electricity bill?: No Do you have trouble taking care of your child, family member or friend?: No Do you have trouble with day-to-day activities such as bathing, preparing meals, shopping, managing finances, etc.?: No Are you currently unemployed and looking for a job?: No Are you interested in more education?: No Please select the resources that you would like help with: None Currently or been in a relationship where the following occur: No concerns reported THRIVE Score: 1 AUDIT C Alcohol Use Questionnaire (AUDIT-C) 1. How often do you have a drink containing alcohol?: Monthly or less 2. How many drinks containing alcohol do you have on a typical day when you are drinking?: 1 or 2 3. How often do you have six or more drinks on one occasion?: Never Total Score: 1 WOO-7 AMB Questionnaire WOO-7 Date WOO - 7 assessed: 09/16/23 Feeling nervous, anxious, or on edge: 0 = Not at all Not being able to stop or control worryin = Not at all Worrying too much about different things: 0 = Not at all Trouble relaxin = Not at all Being so restless that it is hard to sit still: 0 = Not at all Becoming easily annoyed or irritable: 0 = Not at all Feeling afraid as if something awful might happen: 0 = Not at all Total WOO-7 score (0-4 normal; 5-9 mild; 10-14 moderate; 15-21 severe): 0 Source: Developed by Drs. Raul Finch, Chiquis Cobos, Rodney Lamar and colleagues, with an educational shant from [employer]. Review of Systems Const Denies chills, Denies fatigue, Denies fever(s), Denies headache(s) and Denies weakness ENT Denies dizziness and Denies headache(s) Card Denies dyspnea Resp Denies cough, Denies dyspnea, Denies wheezing and Denies other (shortness of breath) Musc Denies numbness and Denies tingling Neuro Denies dizziness, Denies headache(s), Denies numbness, Denies tingling and Denies weakness Psych Denies anxiety and Denies depression Endo Denies fatigue Aller/Immun Denies wheezing Physical exam (Primary Care) Vital Signs: Last Vital Signs Pulse 87 10/30/24 15:39 Resp 16 10/30/24 15:39 BP 120/70 10/30/24 15:39 Pulse Ox 96 10/30/24 15:39 Oxygen Delivery Method Room Air 10/30/24 15:39 BMI result Body Mass Index 32.6 Tobacco/Smoking Status: Tobacco use Status Tobacco use date assessed 03/30/24 10/30/24 15:29 Patient Tobacco Use Status Former Tobacco user 10/30/24 15:29 e-Cigarette/Vaping Use Never Used 10/30/24 15:29 PHQ-9: PHQ-9 Score PHQ-9: Total score 2 10/30/24 16:13 Thrive Assessment: Date of Thrive Assessment Date Thrive assessed 12/16/22 10/30/24 15:29 Currently or been in a relationship where the following occur: No concerns reported Const General: well developed; No acute distress Nutritional Appearance: well nourished Orientation/consciousness: patient oriented x3 HENMT Head: Yes normocephalic and Yes atraumatic Eyes General: appearance normal, both eyes and all related structures Pupils: Equal, round and reactive pupils present EOM: EOMs intact bilaterally Resp Effort & Inspection: normal respiratory effort Auscultation: clear to auscultation bilaterally Cardio Rate: regular rate Rhythm: regular rhythm Heart sounds: S1 normal heart sound present, S2 normal heart sound present, no gallops, no murmurs and no rubs Neuro General: patient oriented x3 and gait normal Cranial nerves: Yes Equal, round and reactive pupils present Psych Affect: normal affect Results AMB Hemoglobin A1c AMB Hemoglobin A1c 8.3 % Last Edit by FAIZA Tello on 10/30/24 15:56 Results Reviewed Results Reviewed: Laboratory Last Values Hgb A1c (Clinic) 8.3 % (4.0-6.0) H 10/30/24 15:54 Coding Level of Care Code Est Pt Level 4 (24027) Diagnoses Type 2 diabetes mellitus without complication E11.9 Hypertension I10 Hand pain M79.643 Assessment & Plan Assessment & Plan (1) Type 2 diabetes mellitus without complication: Code(s): E11.9 - Type 2 diabetes mellitus without complications Category: Medical Plan: A1c?has?increased?to?8.3%.??Goal?is?less?than?7.0%?and?patient?is?hoping?to?reach?goal?so?he?can?get?a?hip?replacement. He?notes?that?his?morning?blood?sugars?are?mostly?well?controlled?but?he?gets?spikes?of?his?blood?sugars?during?day,?particularly?his?lunchtime?when?he?is?at?work?and?says?he?can?not?take?his?lispro. We?had?discussed?considering?glipizide?short-acting?formulation?to?cover?his?mealtime?at?work?if?he?is?unable?to?come?up?with?a?plan?that?is?covered?by?his?insurance. He?has?an?appointment?with?endocrinology?next?week?however?so?will?follow-up?with?them. Had?a?recent?eye?exam.??Some?retinal?changes.??Follow-up?with?Ophthalmology?as?recommended (2) Hypertension: Code(s): I10 - Essential (primary) hypertension Category: Medical Plan: Blood?pressure?is?controlled.??Goal?is?less?than?140/90 Continue?amlodipine-benazepril (3) Hand pain: Code(s): M79.643 - Pain in unspecified hand Category: Medical Plan: Bilateral?hand?pain,?likely?tendinitis?though?could?be?arthritis. Recommended?NSAIDs?as?tolerated?and?ice/heat Will?let?me?know?if?not?improving Orders: Orders AMB Hemoglobin A1c Today E11.65 - Type 2 diabetes mellitus with hyperglycemia Medications: Refilled escitalopram oxalate 20 mg PO BEDTIME 30 days 30 tabs 3RF bupropion HCl SR 200 mg PO DAILY 90 days 90 tabs 3RF atorvastatin 40 mg PO BEDTIME 90 days 90 tabs 3RF metformin 1,000 mg (2 x 500 mg) PO BID 90 days 360 tabs 3RF E11.65 - Type 2 diabetes mellitus with hyperglycemia amlodipine-benazepril 5-20 mg 1 cap PO BEDTIME 90 days 90 caps 3RF
[2024-10-30 15:39] VITALS: BP 120/70; PULSE 87; RESP 16; O2SAT 96; BMI 32.6
== END 2024-10-30 16:24 | disposition home or self-care (01) ==
PROVIDERS: PCP Family Medicine; Visit Provider Family Medicine
DX: E11.9 Type 2 diabetes mellitus without complications (principal); I10 Essential (primary) hypertension; M79.643 Pain in unspecified hand; E11.65 Type 2 diabetes mellitus with hyperglycemia

== ENCOUNTER → 2024-10-30 14:52 | Outpatient (BNVA) | payer OTHER, SELFPAY | PROVIDERS: PCP Family Medicine; Visit Provider Family Medicine | DX: E11.9 Type 2 diabetes mellitus without complications (principal); I10 Essential (primary) hypertension; M79.643 Pain in unspecified hand; Z79.899 Other long term (current) drug therapy | CPT/HCPCS: 83036; 96127 ==

== ENCOUNTER 2024-11-03 13:38 | Outpatient (AMB) | payer OTHER, SELFPAY ==
--- NOTE | 2024-11-03 13:39 | AM.OFFWIN_ITS ---
Intake Vital Signs 11/03/24 13:44 Height 6 ft 2 in Weight 251 lb BMI 32.2 BP 130/74 Blood Pressure Location Rt brachial Position Sitting Respiration 14 Pulse 76 Pulse Source Pulse Oximeter Pulse Oximetry (%) 96 Oxygen Delivery Method Room Air Intake Visit Reasons: Cramps on left leg Intake Note: Patient complaining of cramps inside left thigh and left calf x 2 days and patient also complaining of not getting any sleeping from the discomfort Patient Tobacco Use Status: Former Tobacco user Director Database Required: No Allergies niacin Allergy (Mild, Verified 11/03/24 13:59) neuropathy s/s Medication List - Last Reconciled 11/03/24 by Rhiannon Verdugo, [facility]- amlodipine-benazepril 5-20 mg 1 cap PO BEDTIME 90 days atorvastatin 40 mg PO BEDTIME 90 days blood-glucose meter,continuous (FreeStyle Veronika 3 [place]) As directed blood-glucose sensor (FreeStyle Veronika 3 Sensor device) As directed change every 2 wks bolus insulin pump, 200 unit (CeQur Simplicity) As directed 4 clicks (8 units) twice daily breakfast and supper change every 4 days bupropion HCl SR 200 mg PO DAILY 90 days CeQur Simplicity Oil Paint Shader (diabetic supplies, [employer].) As directed for use with cequr insulin patch NS escitalopram oxalate 20 mg PO BEDTIME 30 days insulin lispro (Humalog KwikPen (U-100) Insulin) 8 units (0.08 mL) subcut TID insulin lispro 8 units (4clicks on Cequr) for breakfast and supper subcutaneously use as directed; 30 days metformin 1,000 mg (2 x 500 mg) PO BID 90 days pen needle, diabetic BID tadalafil (Cialis) 20 mg PO DAILY PRN Tresiba FlexTouch U-200 (insulin degludec) 80 units (0.4 mL) subcut BEDTIME 30 days NS Trulicity (dulaglutide) 3 mg (0.5 mL) subcut QWEEK NS Do you need a note to return to daycare/school/sports/work: Yes HPI HPI Comments History of Present Illness Details History of Present Illness The patient is a 59-year-old male presenting with LLE muscle cramps. The cramps began two nights ago, waking him at night and affecting the left side, specifically the calf and inner thigh. The cramps have been severe enough to disrupt his ability to stand and work effectively. He has a history of occasional mild calf cramps, usually managed by increasing water intake, but never affecting the inner thigh. The episodes were persistent, requiring the application of a lidocaine patch for temporary relief, though full alleviation was not achieved. The patient denies other symptoms such as leg swelling, sensory loss, chest pain, shortness of breath, or recent immobility. He reports cold sensations in his feet without associated illness, which is atypical for him. He has no history of blood clots. Physical Exam Awake alert NAD RRR LS CTAB Bilat feet, L>R, unable to palpate DP or PP on L, pain w/ palp over posterior calf and behind knee on L, antalgic gait, skin intact Plan - Refer for an ultrasound of the left le g to rule out deep vein thrombosis - negative see below. - Continue monitoring symptoms and manag ement of cold extremities. Advised to hydrate liberally try symptomatic relief with yellow mustard or pickle juice. If this does not help recommend follow up with primary care who could consider checking labs. Patient was informed and verbally consented to the use of an ambient scribe for clinic note documentation during this visit. This note is constructed using voice recognition software. While every effort has been made to ensure accuracy in crossband layer, still errors may have been included Sometimes, these errors may affect the content or meaning of the given sentence . Total time spent caring for the patient today was 45 minutes. This includes time spent before the visit reviewing the chart, time spent during the visit, and time spent after the visit on documentation [facility] Medical History Obesity due to excess calories Diabetes type 2, uncontrolled Low testosterone Hyperlipidemia Hypertension Obstructive sleep apnea Surgical History Hx of colonoscopy History of total hip replacement Family History Father Cancer Stroke (cerebrum) Mother CVD (cardiovascular disease) Diabetes HTN (hypertension) Mental disorder Brother Diabetes CVD (cardiovascular disease) Social History Household Members: Spouse Housing: House Are you a primary long term care administrator to a significant other at home: No Do you presently have visiting nurse or other home services: No Alcohol intake: current Alcohol intake frequency: holidays/special occasions only Patient Tobacco Use Status: Former Tobacco user e-Cigarette/Vaping Use: Never Used Second Hand Smoke Exposure: No service: No Current occupational status: employed Current occupation: [employer]. Current occupational exposures/hazards: No Cognitive needs: No Hearing needs: No Vision needs: No Physical Exam Vital Signs: Last Vital Signs Pulse 76 11/03/24 13:44 Resp 14 11/03/24 13:44 BP 130/74 11/03/24 13:44 Pulse Ox 96 11/03/24 13:44 Oxygen Delivery Method Room Air 11/03/24 13:44 BMI result Body Mass Index 32.2 Results Reviewed Results Reviewed: [facility] [place] [id number] Ultrasound Report Signed Patient: Jesse Valera MR#: [id number] : 1965 Acct:[id number] Age/Sex: 59 / M ADM Date: 11/03/24 Loc: HO.HMGCX Attending Dr: Rhiannon EDGAR Ordering Physician: Rhiannon Verdugo Date of Service: 11/03/24 Procedure(s): US venous duplex LE LT Accession Number(s): [id number] cc: Octaviano Villeda MD; Rhiannon Verdugo~ EXAMINATION: US TRIPLEX LOWER EXTREMITY, LEFT CLINICAL INFORMATION: Left lower extremity pain. COMPARISON: None available. TECHNIQUE: Color-flow triplex imaging with spectral analysis and compression Doppler were performed on the left lower extremity. FINDINGS: Respiratory variation, normal compression and augmented flow are noted throughout the left lower extremity. The visualized common femoral vein, superficial femoral vein, profunda femoral vein, popliteal vein and midcalf peroneal and posterior tibial venous segments show no evidence of deep venous thrombosis. There is no Mann's cyst. US/US venous duplex LE LT IMPRESSION: No evidence of deep venous thrombosis involving the left lower extremity. Electronically signed by: Bakari Heredia MD 11/03/2024 04:36 PM EST Dictated By: Bakari Heredia Signed By: <Electronically signed by Bakari Heredia in OV> 11/03/24 1636 DD/ 1501 TD/TT: 11/03/24 1510 Slip Laster: Assessment & Plan Assessment & Plan (1) Pain of left calf: Code(s): M79.662 - Pain in left lower leg (2) Decreased pulse: Code(s): R09.89 - Other specified symptoms and signs involving the circulatory and respiratory systems (3) Leg cramp: Code(s): R25.2 - Cramp and spasm Plan . Orders: Orders US venous duplex LE LT Today M79.662 - Pain in left lower leg, R09.89 - Other specified symptoms and signs involving the circulatory and respiratory systems Coding Level of Care Code Est Pt Level 5 (50632) Diagnoses Pain of left calf M79.662 Decreased pulse R09.89 Leg cramp R25.2
[2024-11-03 13:44] VITALS: BP 130/74; PULSE 76; RESP 14; O2SAT 96; BMI 32.2
== END 2024-11-03 14:09 | disposition home or self-care (01) ==
PROVIDERS: PCP Family Medicine; Visit Provider Nurse Practitioner Family
DX: M79.662 Pain in left lower leg (principal); R09.89 Other specified symptoms and signs involving the circulatory and respiratory systems; R25.2 Cramp and spasm

== ENCOUNTER → 2024-11-03 13:38 | Outpatient (BNVA) | payer OTHER, SELFPAY | PROVIDERS: PCP Family Medicine; Visit Provider Nurse Practitioner Family ==

== ENCOUNTER 2024-11-10 15:18 | Outpatient (AMB) | payer OTHER, SELFPAY ==
--- NOTE | 2024-11-10 15:21 | A.OFFVIS_ITS ---
Vital Signs 11/10/24 15:22 Height 6 ft 2 in Weight 256 lb 13.416 oz BMI 33.0 BP 118/78 Blood Pressure Location Rt brachial Position Sitting Pulse 75 Pulse Source Pulse Oximeter Intake Visit Reasons: DM/Left vm Intake Note: Patient presents today to re-establish treatment for Type 2 Diabetes Mellitus: Last Diabetic eye exam was on: 07/12/2024, [facility] Last Podiatry exam was on: Does not see a Dairy Farmworker Most recent HbA1c: 8.3%, 10/30/2024 Random Glucose- 135 mg/dL, Today Jacquard Lace Weaver Required: No Accompanied by: Self / Same As Patient Allergies niacin Allergy (Mild, Verified 11/03/24 13:59) neuropathy s/s Medication List - Last Reconciled 11/10/24 by Gill Malik PA-C amlodipine-benazepril 5-20 mg 1 cap PO BEDTIME 90 days atorvastatin 40 mg PO BEDTIME 90 days blood-glucose meter,continuous (FreeStyle Veronika 3 [place]) As directed blood-glucose sensor (FreeStyle Veronika 3 Sensor device) As directed change every 2 wks bolus insulin pump, 200 unit (CeQur Simplicity) As directed 4 clicks (8 units) twice daily breakfast and supper change every 4 days bupropion HCl SR 200 mg PO DAILY 90 days CeQur Simplicity Program Director/Music Director (diabetic supplies, [employer].) As directed for use with cequr insulin patch NS escitalopram oxalate 20 mg PO BEDTIME 30 days insulin lispro (Humalog KwikPen (U-100) Insulin) 8 units (0.08 mL) subcut TID insulin lispro 8 units (4clicks on Cequr) for breakfast and supper subcutaneously use as directed; 30 days metformin 1,000 mg (2 x 500 mg) PO BID 90 days pen needle, diabetic BID tadalafil (Cialis) 20 mg PO DAILY PRN Tresiba FlexTouch U-200 (insulin degludec) 80 units (0.4 mL) subcut BEDTIME 30 days NS HPI HPI DM/Left vm: Details: Patient is a 59-year-old male with a significant past medical history of hypertension, hyperlipidemia, type 2 diabetes presenting today for a follow up regarding his diabetes. Was last seen by my colleague in July. Endo: Dm-A1c is 8.3. He is currently on Tresiba 80 units, Humalog 3 times a day 8 units, metformin 1000 mg twice a day and Trulicity 3 mg weekly. -does not take any mealtime insulin at all. He states that he was supposed to try a pump but it was not approved by his insurance. He does not like the idea of taking Humalog with him to school. 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 He states he does often also just forget to take this at night or in the morning with his meals. -he states his blood sugars are elevated because for the last few weeks he has been out of Tresiba but recently got this refilled by his PCP. Since restarting the Tresiba his blood sugars have come down to around 150. CGM- hyperglycemic 75%, in range 25%. 0 hypoglyecmic No retinopathy CV: Blood pressure today in the office is 118/78. He is currently on amlodipine/benazepril 5/20 mg daily. Cholesterol is controlled with atorvastatin 40 mg. [facility] Medical History Obesity due to excess calories Diabetes type 2, uncontrolled Low testosterone Hyperlipidemia Hypertension Obstructive sleep apnea Surgical History Hx of colonoscopy History of total hip replacement Family History Father Cancer Stroke (cerebrum) Mother CVD (cardiovascular disease) Diabetes HTN (hypertension) Mental disorder Brother Diabetes CVD (cardiovascular disease) Social History Household Members: Spouse Housing: House Are you a primary insurance healthcare representative to a significant other at home: No Do you presently have visiting nurse or other home services: No Alcohol intake: current Alcohol intake frequency: holidays/special occasions only Patient Tobacco Use Status: Former Tobacco user e-Cigarette/Vaping Use: Never Used Second Hand Smoke Exposure: No service: No Current occupational status: employed Current occupation: [employer]. Current occupational exposures/hazards: No Cognitive needs: No Hearing needs: No Vision needs: No Physical Exam Vital Signs: Last Vital Signs Pulse 75 11/10/24 15:22 BP 118/78 11/10/24 15:22 BMI result Body Mass Index 33.0 Const Orientation/consciousness: patient oriented x3 Neck Neck: Yes no lymphadenopathy Thyroid: Thyroid normal Carotids: no bruits Resp Auscultation: clear to auscultation bilaterally Cardio Rate: regular rate Rhythm: regular rhythm Heart sounds: S1 normal heart sound present and S2 normal heart sound present Neuro General: patient oriented x3, gait normal and no focal motor deficits Extrem General: Yes normal to inspection Results Reviewed Results Reviewed: Laboratory Tests 10/27/23 03/30/24 08/15/24 09:46 08:51 15:13 Creatinine 0.84 Estimated GFR > 60 Hgb A1c (Clinic) 9.2 H 7.6 H Triglycerides 136 Cholesterol 127 LDL Cholesterol, Calc 63 HDL Cholesterol 37 L 10/30/24 15:54 Creatinine Estimated GFR Hgb A1c (Clinic) 8.3 H Triglycerides Cholesterol LDL Cholesterol, Calc HDL Cholesterol Assessment & Plan Assessment & Plan (1) Diabetes type 2, uncontrolled: Code(s): E11.65 - Type 2 diabetes mellitus with hyperglycemia Category: Medical Qualifiers: Glycemic state: with hyperglycemia Qualified Code(s): E11.65 - Type 2 diabetes mellitus with hyperglycemia Plan: will increase trulicty to 4.5 mg weekly Continue Tresiba Advised to set an alarm on his phone to remind himself to use the Humalog Continue metformin. Follow up in 3 months or sooner if needed. Advised patient to complete labs prior to appointment. (2) Hyperlipidemia: Code(s): E78.5 - Hyperlipidemia, unspecified Category: Medical Plan: Continue atorvastatin. (3) Hypertension: Code(s): I10 - Essential (primary) hypertension Category: Medical Plan: WNL. Continue current regimen Medications: New dulaglutide (Trulicity) 4.5 mg (0.5 mL) subcut QWEEK 2 mL 5RF Coding Level of Care Code Est Pt Level 4 (42936) Complex EM visit Add On G2211 Diagnoses Uncontrolled type 2 diabetes mellitus with hyperglycemia E11.65 Glycemic state: with hyperglycemia Hyperlipidemia E78.5 Hypertension I10
[2024-11-10 15:22] VITALS: BP 118/78; PULSE 75; BMI 33.0
[2024-11-10 15:29] LABS: Glucose, Whole Blood 135 mg/dL (60-115)
== END 2024-11-10 15:46 | disposition home or self-care (01) ==
PROVIDERS: PCP Family Medicine; Visit Provider Physician Assistant
DX: E11.65 Type 2 diabetes mellitus with hyperglycemia (principal); E78.5 Hyperlipidemia, unspecified; I10 Essential (primary) hypertension

== ENCOUNTER → 2024-11-10 15:18 | Outpatient (BNVA) | payer OTHER, SELFPAY | PROVIDERS: PCP Family Medicine; Visit Provider Physician Assistant | DX: E11.65 Type 2 diabetes mellitus with hyperglycemia (principal); I10 Essential (primary) hypertension; E78.5 Hyperlipidemia, unspecified; Z79.84 Long term (current) use of oral hypoglycemic drugs; Z79.85 Long-term (current) use of injectable non-insulin antidiabetic drugs; Z79.899 Other long term (current) drug therapy | CPT/HCPCS: 82947 ==

== ENCOUNTER 2025-01-27 08:23 | Outpatient (REF) | payer OTHER, SELFPAY ==
[2025-01-27 09:15] LABS: MANUAL DIFF FLAG NO
[2025-01-27 10:04] LABS: Appearance Urine Clear; Color Urine Yellow; Glucose Urine UA 100 mg/dL (Negative); Leukocyte Esterase Urine Negative (Negative); Nitrite Urine Negative (Negative); PH 5.5 (5.0-9.0); Specific Gravity - Urine 1.015 (1.005-1.025); Urine Blood Negative (Negative); Urine Ketones Negative (Negative); Urine Protein Negative (Neg-Trace)
[2025-01-27 10:06] LABS: Basophils Absolute Auto 0.1 X10*3/uL (0.0-0.2); Eosinophils Absolute Auto 0.2 X10*3/uL (0.0-0.4); Eosinophils Percent Auto 2.3 % (0-4); Hematocrit 41.5 % (42.0-52.0); Hemoglobin 14.1 g/dl (14.0-18.0); Imm Gran Abs Auto 0.02 X10*3/uL (0.00-0.03); Imm Gran Pct Auto 0.3 % (0.0-0.4); Lymphocytes Absolute Auto 2.3 X10*3/uL (1.2-4.9); Mean Corpuscular Hemoglobin 30.1 pg (27.0-33.0); Mean Corpuscular Volume 88.7 fL (80.0-98.0); Mean Platelet Volume 9.4 fL (9.4-12.4); Monocytes Absolute Auto 0.6 X10*3/uL (0.1-1.2); Monocytes Percent Auto 8.6 % (2-11); Neutrophils Absolute Auto 3.9 x10*3/uL (2.0-8.3); Neutrophils Percent Auto 54.8 % (45-73); Platelet Count 231 X10*3/uL (160-400); Red Blood Count 4.68 X10*6/uL (4.60-5.80); Red Cell Distribution Width 13.1 % (11.0-16.0); White Blood Count 7.1 X10*3/uL (4.8-10.8)
[2025-01-27 10:14] LABS: B Type Natriuretic Peptide < 10 pg/mL (<100)
[2025-01-27 10:40] LABS: Prostate Specific Antigen Scr 0.26 ng/mL (<0.05-4.0)
[2025-01-27 10:41] LABS: Alanine Aminotransferase 24 U/L (0-40); Albumin Level 4.4 g/dL (3.5-5.0); Alkaline Phosphatase 62 U/L (39-117); Anion Gap 13 (12-20); Aspartate Amino Transferase 20 U/L (5-37); Bilirubin Total 0.6 mg/dL (0.0-1.0); Blood Urea Nitrogen 11 mg/dL (9-16); Calcium 9.5 mg/dL (8.4-10.2); Carbon Dioxide 27 mmol/L (22-29); Chloride 106 mmol/L (96-108); Cholesterol 111 mg/dL (<200); Estimated Glomerular Filt Rate > 60; Glucose Fasting 114 mg/dL (60-99); HDL Cholesterol 38 mg/dL (>40); LDL Cholesterol Calculated 61 mg/dL (<100); Potassium 4.5 mmol/L (3.3-5.1); Sodium 141 mmol/L (135-145); TSH reflex Free T4 0.68 uIU/mL (0.32-4.0); Total Protein 7.5 g/dL (6.5-8.0); Triglycerides 62 mg/dL (<150)
[2025-01-27 11:00] LABS: Creatinine Urine 128.42 mg/dL; Microalbum/Creatinine Ratio Ur 5.4 ug/mg cr (<30)
== END 2025-01-27 08:24 | disposition home or self-care (01) ==
LOC: HO.LAB 08:23
PROVIDERS: Nurse Practitioner Adult Health; PCP Family Medicine; Visit Provider Family Medicine
DX: Z00.00 Encounter for general adult medical examination without abnormal findings (principal); Z12.5 Encounter for screening for malignant neoplasm of prostate; E11.65 Type 2 diabetes mellitus with hyperglycemia; I10 Essential (primary) hypertension
CPT/HCPCS: 36415; 80053; 80061; 81003; 82043; 82570; 83880; 84153; 84443; 85025

== ENCOUNTER 2025-02-09 15:16 | Outpatient (AMB) | payer OTHER, SELFPAY ==
--- NOTE | 2025-02-09 08:26 | A.OFFVIS_ITS ---
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 He was last seen by Juan F MANRIQUEZ 11/10/2025 at which time Trulicity was increased to 4.5 mg. He was hoping to get started on a CeQur insulin patch for premeal bolus insulin last year. 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 Unfortunately this was not approved by his insurance. Hgb A1C 02/09/25 8,2 %, 10/30/24 8.3%, 08/02/24 7.6% down from 9.2% 03/2024. He needs to lower his A1c to 7% in order to have orthopedic surgery. 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:has seen CDE in the past No neuropathy: denies numbness, tingling, cramping in lower extremities Does not see podiatry No Retinopathy: 06/2024 last OPTH appt No Nephropathy 01/27/2025 eGFR>60 not on Joe inhibitor 01/27/25 microalbumin 5.0 Has HLD on statin 01/27/2025 LDL 61 ED: previously tried tadalafil Testosterone 04/2022 314 04/11 192 Hypoglycemia: denies Hyperglycemia: denies urinary frequency, nocturia, polydypsia Exercise:walking at school, yard work, moving wood on a regular basis Diet:balanced meal plan [facility] Medical History Obesity due to excess calories Diabetes type 2, uncontrolled Low testosterone Hyperlipidemia Hypertension Obstructive sleep apnea Surgical History Hx of colonoscopy History of total hip replacement Family History Father Cancer Stroke (cerebrum) Mother CVD (cardiovascular disease) Diabetes HTN (hypertension) Mental disorder Brother Diabetes CVD (cardiovascular disease) Social History Household Members: Spouse Housing: House Are you a primary day care aide to a significant other at home: No Do you presently have visiting nurse or other home services: No Alcohol intake: current Alcohol intake frequency: holidays/special occasions only Patient Tobacco Use Status: Former Tobacco user e-Cigarette/Vaping Use: Never Used Second Hand Smoke Exposure: No service: No Current occupational status: employed Current occupation: [email or web address]. Current occupational exposures/hazards: No Cognitive needs: No Hearing needs: No Vision needs: No Physical Exam Vital Signs: Last Vital Signs Pulse 79 02/09/25 15:25 BP 138/82 02/09/25 15:25 Pulse Ox 93 02/09/25 15:25 Oxygen Delivery Method Room Air 02/09/25 15:25 BMI result Body Mass Index 32.6 Const Other: Absence of Cushingoid features. Absence of acromegalic features. Heart S1 S2, Reg R/R. No M/R G. Skin exam reveals absence of vitiligo or acanthosis nigricans. Visual exam of foot performed. No ulcerations or open lesions. No inter digit maceration or fissuring. No onychomycosis, no callouses. Sensation intact to monofilament exam. Vibratory sensation is normal with 128 Hz tuning fork. Results AMB Hemoglobin A1c AMB Hemoglobin A1c 8.2 % Last Edit by NASREEN Peñaloza on 02/09/25 15:40 Results Reviewed Results Reviewed: Laboratory Last Values Glucose (Clinic) 139 mg/dL (60-115) H 02/09/25 15:31 Hgb A1c (Clinic) 8.2 % (4.0-6.0) H 02/09/25 15:33 Assessment & Plan Assessment & Plan (1) Type 2 diabetes mellitus without complication: Code(s): E11.9 - Type 2 diabetes mellitus without complications Category: Medical Plan: 59-year-old type 2 diabetic with A1C in the office of 8.2% Will start patient on jardiance. Side effects of SGLT-2 inhibitors : UTI, fungal infection, bacterial infection in the perineum, light headed, feeling like you may pass out, low blood sugar, dehydration, allergic reaction-skin rash, itching, hives, rare dka, change in kidney function, rare pancreatitis, Contact PCP or go to urgent care for any infection. More serious reaction go to ER and stop medication, Notify Endo if medication is stopped and your blood sugars increase. We will switch patient from Trulicity to Mounjaro as his A1c is not controlled and he should have better control with this. He will call after 3 weeks to report any side effects and progress and if needed we will increase to 5 mg. He will be changing insurances in 3 months and may have better coverage for Cequr if short acting insulin needed. The patient had an opportunity to ask questions regarding treatment plan. The patient expressed understanding and agreement with the above treatment plan. The patient is aware they should contact our office by phone for worsening glucose readings or for any low blood sugars which may warrant a change in diabetes medication. Compliance is encouraged with medications and any followup testing/consults which may have been ordered. Orders: Orders AMB Hemoglobin A1c 02/09/25 E11.65 - Type 2 diabetes mellitus with hyperglycemia Medications: New empagliflozin (Jardiance) 10 mg PO DAILY 30 days 30 tabs 2RF tirzepatide (Mounjaro) 2.5 mg (0.5 mL) subcut QWEEK 4 weeks 2 mL 3RF On Hold CeQur Simplicity [employer] (diabetic supplies, [id number].) Hold Comment: Doctor's Order As directed for use with cequr insulin patch 1 ea 1RF NS Patient Instructions: Take 15 carb carbohydrate grams to treat a low sugar (3-4 glucose tablets, half a glass of juice or 15 carbohydrate grams of soft candy such as gummie snacks). Recheck your sugar in 15 minutes and re-treat again with 15 carbohydrate grams if low or still with symptoms. Do not drive a car or operate machinery if you do not know what your blood sugar is, if it is low or in excess of 300. Check your feet daily looking for any signs of infection, drainage, redness, ulceration and seek medical attention if this occurs. Break in shoes gradually and do not wear open-toed shoes or walk stocking footed or barefooted. The patient was counseled to achieve a target A1C of 7% (154 avg). Fasting blood sugars should be 90-130 in the morning and less than 180 two hours after meals. Reviewed the relationship between poor diabetic control and the development of complications. Sick day managent reviewed Coding Level of Care Code Est Pt Level 4 (40177) Diagnoses Type 2 diabetes mellitus without complication E11.9 Time Spent (min) 30 Comment Time spent reviewing labs/provider notes, face to face, chart doc
[2025-02-09 15:25] VITALS: BP 138/82; PULSE 79; O2SAT 93; BMI 32.6
[2025-02-09 15:36] LABS: Glucose, Whole Blood 139 mg/dL (60-115)
== END 2025-02-09 16:03 | disposition home or self-care (01) ==
LOC: HO.ENCR 15:17
PROVIDERS: PCP Family Medicine; Visit Provider Nurse Practitioner Adult Health
DX: E11.65 Type 2 diabetes mellitus with hyperglycemia (principal)

== ENCOUNTER → 2025-02-09 15:16 | Outpatient (BNVA) | payer OTHER, SELFPAY | PROVIDERS: PCP Family Medicine; Visit Provider Nurse Practitioner Adult Health | DX: E11.9 Type 2 diabetes mellitus without complications (principal) | CPT/HCPCS: 82947; 83036 ==

== ENCOUNTER → 2025-05-11 15:08 | Outpatient (AMB) | payer OTHER, SELFPAY ==
--- NOTE | 2025-05-11 12:20 | A.OFFVIS_ITS ---
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 He was last seen 02/09/25. He was off his medication due to loss of insurance. He is now back on medication. He has lost 30 pounds over the last few months due to elevated glucose Hgb A1C 12.5 up from 8.2% Glucose was elevated to 458, he was given 10 units of insulin and observed for one hour. Hgb A1C 05/11/25 %, 02/09/25 8,2 %, 10/30/24 8.3%, 08/02/24 7.6% down from 9.2% 03/2024. He needs to lower his A1c to 7% in order to have orthopedic surgery. 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:has seen CDE in the past No neuropathy: denies numbness, tingling, cramping in lower extremities Does not see podiatry No Retinopathy: 06/2024 last OPTH appt No Nephropathy 01/27/2025 eGFR>60 not on Joe inhibitor 01/27/25 microalbumin 5.0 Has HLD on statin 01/27/2025 LDL 61 ED: previously tried tadalafil Testosterone 04/2022 314 04/11 192 Hypoglycemia: denies Hyperglycemia: denies urinary frequency, nocturia, polydypsia Exercise:walking at school, yard work, moving wood on a regular basis Diet:balanced meal plan [facility] Medical History Obesity due to excess calories Diabetes type 2, uncontrolled Low testosterone Hyperlipidemia Hypertension Obstructive sleep apnea Surgical History Hx of colonoscopy History of total hip replacement Family History Father Cancer Stroke (cerebrum) Mother CVD (cardiovascular disease) Diabetes HTN (hypertension) Mental disorder Brother Diabetes CVD (cardiovascular disease) Social History Household Members: Spouse Housing: House Are you a primary memory care program resident to a significant other at home: No Do you presently have visiting nurse or other home services: No Alcohol intake: current Alcohol intake frequency: holidays/special occasions only Patient Tobacco Use Status: Former Tobacco user e-Cigarette/Vaping Use: Never Used Second Hand Smoke Exposure: No service: No Current occupational status: employed Current occupation: [employer]. Current occupational exposures/hazards: No Cognitive needs: No Hearing needs: No Vision needs: No Physical Exam Vital Signs: Last Vital Signs Pulse 82 05/11/25 15:12 BP 146/74 H 05/11/25 15:12 Pulse Ox 98 05/11/25 15:12 BMI result Body Mass Index 29.4 Const Other: Absence of Cushingoid features. Absence of acromegalic features. Neck exam reveals nl size thyroid about 15 gms. No thyroid nodules palpable. Heart S1 S2, Reg R/R. No M/R G. Skin exam reveals absence of vitiligo or acanthosis nigricans. No edema Visual exam of foot performed. No ulcerations or open lesions. No inter digit maceration or fissuring. No onychomycosis, no callouses. Sensation intact to monofilament exam. Vibratory sensation is normal with 128 Hz tuning fork. Pulses positive distally Office Meds Humalog U-100 Insulin 100 unit/mL subcutaneous solution Performing Provider: Poornima Gates NP Performing Location: [facility] Endocrinology Administered by: Gini Dacosta RN on 05/11/25 15:30 Dose Route Admin Location Dispensed Lot Number Expiration Date [facility] Visitor Service Assistant 10 unit subcut left upper arm 0.1 mL [id number] 11/02/25 7170-1399-55 [employer] Total Dispensed Waste 0.1 mL 0 % Comments: Patient with elevated blood sugar in office. Verbal order for 10 units of insulin lispro given by Poornima Gates. Drawn up in insulin syringe. Patient agreeable to plan. Verified dosage visually prior to injecting. Given in left arm d/t sensor in right arm. Urine ketone testing pending. Patient tolerated well. Verbally advised medical billing associate that 10 units were given at 3:30pm. Will recheck per protocol. Patient is pushing fluids. Results AMB Hemoglobin A1c AMB Hemoglobin A1c 12.5 % Last Edit by NASREEN Montoya on 05/11/25 15:2 6 UR Ketone Dip UR Ketone Dip Trace Last Edit by NASREEN Montoya on 05/11/25 15:42 Results Reviewed Results Reviewed: Laboratory Last Values Glucose (Clinic) 450 mg/dL (60-115) H* 05/11/25 16:29 Hgb A1c (Clinic) 12.5 % (4.0-6.0) H 05/11/25 15:20 Ur Ketones (Stick) Trace 05/11/25 15:39 Assessment & Plan Assessment & Plan (1) Type 2 diabetes mellitus without complication: Code(s): E11.9 - Type 2 diabetes mellitus without complications Category: Medical Plan: Type 2 diabetic who has a without his medications for several months due to insurance reasons. I recommended that he go to the emergency room for treatment which he declined. He has been off his meds for a couple of months. I confirmed with his pharmacy that he is able to chicken picker his all of his prescriptions today. A new order for Fiasp was sent but if this is not covered they do have insurance coverage for aspart but big why does not have any. Pharmacy agreed to transfer it to another location if needed. He will return in 1 week he can use a temp sliding scale 150-200 2 units 201-250 2 units 251-300 6 units over 300 give 8 units can increase lantus by 2 units every 2 days until glucose less than 130 in the am Orders: Orders AMB Hemoglobin A1c 05/11/25 E11.9 - Type 2 diabetes mellitus without complications AMB Insulin Lispro Injection Practice Supplied 05/11/25 E11.9 - Type 2 diabetes mellitus without complications AMB Ketone Urine Dipstick 05/11/25 E11.9 - Type 2 diabetes mellitus without complications Medications: New Lantus Solostar U-100 Insulin (insulin glargine) 40 units (0.4 mL) subcut DAILY 15 mL 3RF 30 days NS insulin aspart (niacinamide) 100 unit/mL (3 mL) (Fiasp FlexTouch U-100 Insulin) 8 units subcut TIDWMEAL 15 mL 3RF 30 days blood-glucose sensor (AutobutlerStyle Veronika 3 Plus Sensor device) As directed every 15 days 2 ea 10RF blood sugar diagnostic (OneTouch Ultra Test strips) As directed tid 30 ea 6RF lancets As directed tid 100 ea 3RF E11.9 - Type 2 diabetes mellitus without complications Changed From pen needle, diabetic BID 100 ea 12RF To pen needle, diabetic qid 100 ea 12RF Refilled insulin lispro (Humalog KwikPen (U-100) Insulin) 8 units (0.08 mL) subcut TID 15 mL 5RF empagliflozin (Jardiance) 10 mg PO DAILY 30 tabs 2RF 30 days metformin 1,000 mg (2 x 500 mg) PO BID 360 tabs 3RF 90 days E11.65 - Type 2 diabetes mellitus with hyperglycemia tirzepatide (Mounjaro) 2.5 mg (0.5 mL) subcut QWEEK 2 mL 3RF 4 weeks Discontinued dulaglutide (Trulicity) Discontinued Reason: Doctor's Order 4.5 mg (0.5 mL) subcut QWEEK 2 mL 5RF CeQur Simplicity Yacht [employer] (diabetic supplies, [place].) Discontinued Reason: Doctor's Order As directed for use with cequr insulin patch 1 ea 1RF NS insulin lispro Discontinued Reason: Doctor's Order 8 units (4clicks on Cequr) for breakfast and supper subcutaneously use as directed; 30 days 10 mL 0RF Tresiba FlexTouch U-200 (insulin degludec) Discontinued Reason: Doctor's Order 80 units (0.4 mL) subcut BEDTIME 30 days 12 mL 5RF NS blood-glucose sensor (FreeStyle Veronika 3 Sensor device) Discontinued Reason: Doctor's Order As directed change every 2 wks 2 ea 5RF E11.65 - Type 2 diabetes mellitus with hyperglycemia, E11.9 - Type 2 diabetes mellitus without complications Patient Instructions: go to er if sugars continue to be high Coding Level of Care Code Tele New Pt Level 5 (03006) Complex EM visit Add On G2211 Diagnoses Type 2 diabetes mellitus without complication E11.9 Time Spent (min) 350 Comment Time spent reviewing labs/provider notes, face to face, chart doc
[2025-05-11 15:12] VITALS: BP 146/74; PULSE 82; O2SAT 98; BMI 29.4
[2025-05-11 15:22] LABS: Glucose, Whole Blood 458 mg/dL (60-115)
[2025-05-11 16:33] LABS: Glucose, Whole Blood 450 mg/dL (60-115)
== END ==
PROVIDERS: PCP Family Medicine; Visit Provider Nurse Practitioner Adult Health
DX: E11.9 Type 2 diabetes mellitus without complications (principal)

== ENCOUNTER → 2025-05-11 15:08 | Outpatient (BNVA) | payer OTHER, SELFPAY | PROVIDERS: PCP Family Medicine; Visit Provider Nurse Practitioner Adult Health | DX: E11.9 Type 2 diabetes mellitus without complications (principal); Z79.4 Long term (current) use of insulin; Z79.84 Long term (current) use of oral hypoglycemic drugs | CPT/HCPCS: 81002; 82947; 83036; 96372; J1815 ==

== ENCOUNTER 2025-07-18 12:52 | Outpatient (AMB) | payer OTHER, SELFPAY ==
--- NOTE | 2025-07-18 13:03 | MHC.OFFVIS ---
Vital Signs 07/18/25 13:06 Height 6 ft 2 in Weight 239 lb 10.279 oz BMI 30.8 BP 116/68 Blood Pressure Location Lt brachial Position Sitting Pulse 87 Pulse Source Pulse Oximeter Pulse Oximetry (%) 97 Oxygen Delivery Method Room Air Intake Visit Reasons: DMT2 A1c 12.5% Intake Note: Patient present today to follow up on Type Diabetes Mellitus. Last Diabetic Eye exam: Last year, has an upcoming appointment Aug Last Podiatry Visit: Does not see a Sliver Chopper Random Glucose: 257 mg/dl Hgb A1C: 12.5% 05/11/2025 Time Motion Analyst Required: No Accompanied by: Self / Same As Patient Allergies niacin Allergy (Mild, Verified 07/18/25 13:07) neuropathy s/s Medication List - Last Reconciled 07/18/25 by Raul Linares MD amlodipine-benazepril 5-20 mg 1 cap PO BEDTIME 90 days atorvastatin 40 mg PO BEDTIME 90 days blood sugar diagnostic ([employer]uch Ultra Test strips) As directed tid blood-glucose sensor (Exhibition Ayle Veronika 3 Plus Sensor device) As directed every 15 days blood-glucose,concrete pavement installer,cont (FreeStyle Veronika 3 [place]) As directed bolus insulin pump, 200 unit (CeQur Simplicity) As directed 4 clicks (8 units) twice daily breakfast and supper change every 4 days bupropion HCl SR 200 mg PO DAILY 90 days empagliflozin (Jardiance) 10 mg PO DAILY 30 days escitalopram oxalate 20 mg PO BEDTIME 30 days ibuprofen 200 mg PO Q6H PRN insulin aspart (niacinamide) 100 unit/mL (3 mL) (Fiasp FlexTouch U-100 Insulin) 8 units subcut TIDWMEAL 30 days insulin lispro (Humalog KwikPen (U-100) Insulin) 8 units (0.08 mL) subcut TID lancets As directed tid Lantus Solostar U-100 Insulin (insulin glargine) 40 units (0.4 mL) subcut DAILY 30 days NS lidocaine 4% (Salonpas (lidocaine)) 1 patch topical DAILY PRN metformin 1,000 mg (2 x 500 mg) PO BID 90 days pen needle, diabetic qid tadalafil (Cialis) 20 mg PO DAILY PRN tirzepatide (Mounjaro) 2.5 mg (0.5 mL) subcut QWEEK 4 weeks HPI Comments Details: 59 year old DM type 2 diagnosed approx 2011 who presents for management of diabetes. He was last seen 05/11/25 by Poornima Peterson NP . Was on glipizide in the past which was ineffective Diabetes medications: Lantus 40 units daily lispro 8 units TID was not taking metformin 1000 mg BID mounjaro 2.5mg jardiance 10 mg Veronika download from 07/05/2025 to 07/18/2025 shows sensor use 97% of the time. Average glucose is 199 with G mi of 8.1% and variability 30.2%. 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 seen CDE in the past No neuropathy: denies numbness, tingling, cramping in lower extremities Does not see podiatry No Retinopathy: last OPTH appt No Nephropathy 01/27/2025 eGFR>60 not on Joe inhibitor 01/27/25 microalbumin 5.0 Has HLD on statin 01/27/2025 LDL 61 ED: previously tried tadalafil Testosterone 04/2022 314 04/11 192 Hypoglycemia: denies Hyperglycemia: denies urinary frequency, nocturia, polydypsia Exercise:walking at school, yard work, moving wood on a regular basis Diet:balanced meal plan [facility] Medical History Obesity due to excess calories Diabetes type 2, uncontrolled Low testosterone Hyperlipidemia Hypertension Obstructive sleep apnea Surgical History Hx of colonoscopy History of total hip replacement Family History Father Cancer Stroke (cerebrum) Mother CVD (cardiovascular disease) Diabetes HTN (hypertension) Mental disorder Brother Diabetes CVD (cardiovascular disease) Social History Household Members: Spouse Housing: House Are you a primary home health care respiratory therapist to a significant other at home: No Do you presently have visiting nurse or other home services: No Alcohol intake: current Alcohol intake frequency: holidays/special occasions only Patient Tobacco Use Status: Former Tobacco user e-Cigarette/Vaping Use: Never Used Second Hand Smoke Exposure: No service: No Current occupational status: employed Current occupation: [employer]. Current occupational exposures/hazards: No Cognitive needs: No Hearing needs: No Vision needs: No Physical Exam Vital Signs: Last Vital Signs Pulse 87 07/18/25 13:06 BP 116/68 07/18/25 13:06 Pulse Ox 97 07/18/25 13:06 Oxygen Delivery Method Room Air 07/18/25 13:06 BMI result Body Mass Index 30.8 Const Other: Absence of Cushingoid features. Absence of acromegalic features. Neck exam reveals nl size thyroid about 15 gms. No thyroid nodules palpable. Heart S1 S2, Reg R/R. No M/R G. Skin exam reveals absence of vitiligo or acanthosis nigricans. No edema Visual exam of foot performed. No ulcerations or open lesions. No inter digit maceration or fissuring. No onychomycosis, no callouses. Sensation intact to monofilament exam. Vibratory sensation is normal with 128 Hz tuning fork. Pulses positive distally Assessment & Plan Assessment & Plan (1) Diabetes type 2, uncontrolled: Code(s): E11.65 - Type 2 diabetes mellitus with hyperglycemia Category: Medical Qualifiers: Glycemic state: with hyperglycemia Qualified Code(s): E11.65 - Type 2 diabetes mellitus with hyperglycemia Plan: This is a 58-year-old white male with a history of type 2 diabetes being treated metformin , Mounjaro and basal- bolus insulin insulin with poor glycemic control and no known microvascular or macrovascular complications. The plan is increase the Mounjaro to 5 mg Q weekly. Patient should also take the Humalog insulin 8 units prior to breakfast if he continues to have elevation of blood sugars post breakfast we will have him follow up with the primary care diabetes team 2 months Medications: New tirzepatide (Mounjaro) 5 mg (0.5 mL) subcut QWEEK 2 mL 5RF Discontinued tirzepatide (Mounjaro) Discontinued Reason: Doctor's Order 2.5 mg (0.5 mL) subcut QWEEK 4 weeks 2 mL 3RF Coding Level of Care Code Est Pt Level 4 (64533) Complex EM visit Add On G2211 Diagnoses Uncontrolled type 2 diabetes mellitus with hyperglycemia E11.65 Glycemic state: with hyperglycemia
[2025-07-18 13:06] VITALS: BP 116/68; PULSE 87; O2SAT 97; BMI 30.8
[2025-07-18 13:18] LABS: Glucose, Whole Blood 257 mg/dL (60-115)
== END 2025-07-18 13:32 | disposition home or self-care (01) ==
LOC: HO.ENCR 12:52
PROVIDERS: PCP Family Medicine; Visit Provider Internal Medicine Endocrinology, Diabetes & Metabolism
DX: E11.65 Type 2 diabetes mellitus with hyperglycemia (principal)
CPT/HCPCS: 99214

== ENCOUNTER → 2025-07-18 12:52 | Outpatient (BNVA) | payer OTHER, SELFPAY | PROVIDERS: PCP Family Medicine; Visit Provider Internal Medicine Endocrinology, Diabetes & Metabolism | DX: E11.65 Type 2 diabetes mellitus with hyperglycemia (principal) | CPT/HCPCS: 82947; 99212 ==

== ENCOUNTER 2025-08-21 12:56 | Outpatient (AMB) | payer OTHER, SELFPAY ==
--- NOTE | 2025-08-21 13:03 | MHC.OFFVIS ---
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,cont (FreeStyle Veronika 3 [place]) As directed bolus insulin pump, 200 unit ([employer] Simplicity) As directed 4 clicks (8 units) twice daily breakfast and supper change every 4 days bupropion HCl SR 200 mg PO DAILY 90 days empagliflozin (Jardiance) 25 mg PO QAM escitalopram oxalate 20 mg PO BEDTIME 30 days ibuprofen 200 mg PO Q6H PRN insulin glargine (Lantus Solostar U-100 Insulin) 32 units subcut DAILY lancets As directed tid lidocaine 4% (Salonpas (lidocaine)) 1 patch topical DAILY PRN metformin 1,000 mg (2 x 500 mg) PO BID 90 days pen needle, diabetic qid tadalafil (Cialis) 20 mg PO DAILY PRN tirzepatide (Mounjaro) 7.5 mg (0.5 mL) subcut QWEEK HPI Comments Details: This is a 60-year-old male with a past medical history of low testosterone, hypertension, hyperlipidemia, type 2 diabetes and depression presenting for diabetic management. This is my 1st visit with the patient, and he was last seen by Dr. Linares on 07/18/2025. He was diagnosed with diabetes in 2021. He has a family history of Type II diabetes. Reviewed Veronika 3 data CGM active 97% Average glucose 194 GMI 8% Glucose variability 31% Very high 19% High 33% Target range 48% My interpretation is the patient has blood sugars within target overnight and has postprandial and late night hyperglycemia. Current medication: Lantus 40 units at nightly, metformin 1000 mg twice a day, Jardiance 10 mg daily, Mounjaro 5 mg weekly He is prescribed lispro 3 times daily, but he does not take it. Past medication: Glipizide ineffective He has hyperlipidemia, on a statin. He has an eye exam scheduled this month. ROS: Constitutional: No unexplained weight loss, fatigue or night sweats Gastrointestinal: No anorexia, nausea, vomiting or diarrhea. No abdominal pain Neurologic: No numbness or tingling in the extremities. Endocrine: No cold or heat intolerance. No polyuria or polydipsia. Physical exam: Constitutional: Alert, in no distress. Neck: Supple, Full range of motion. No lymphadenopathy. No palpable thyroid masses. Respiratory: Clear to auscultation. Cardiovascular: S1 S2 regular. No murmurs. [facility] Medical History Obesity due to excess calories Diabetes type 2, uncontrolled Low testosterone Hyperlipidemia Hypertension Obstructive sleep apnea Surgical History Hx of colonoscopy History of total hip replacement Family History Father Cancer Stroke (cerebrum) Mother CVD (cardiovascular disease) Diabetes HTN (hypertension) Mental disorder Brother Diabetes CVD (cardiovascular disease) Social History Household Members: Spouse Housing: House Are you a primary nursing care partner to a significant other at home: No Do you presently have visiting nurse or other home services: No Alcohol intake: current Alcohol intake frequency: holidays/special occasions only Patient Tobacco Use Status: Former Tobacco user e-Cigarette/Vaping Use: Never Used Second Hand Smoke Exposure: No service: No Current occupational status: employed Current occupation: [email or web address]. Current occupational exposures/hazards: No Cognitive needs: No Hearing needs: No Vision needs: No Physical Exam Vital Signs: Last Vital Signs Pulse 79 08/21/25 13:04 BP 122/62 08/21/25 13:04 Pulse Ox 96 08/21/25 13:04 Oxygen Delivery Method Room Air 08/21/25 13:04 BMI result Body Mass Index 13.9 Office Procedures Glucose Monitoring Details Details: See HPI 92132 - Glucose monitoring, continuous-physician I&R Procedure code (CPT) selection complete Results AMB Hemoglobin A1c AMB Hemoglobin A1c 7.7 % Last Edit by Chioma Allison CMA on 08/21/25 13:28 Results Reviewed Results Reviewed: Laboratory Last Values Glucose (Clinic) 162 mg/dL (60-115) H 08/21/25 13:13 Laboratory Tests 01/27/25 01/27/25 09:10 09:12 Creatinine 0.81 Estimated GFR > 60 AST 20 ALT 24 Triglycerides 62 Cholesterol 111 LDL Cholesterol, Calc 61 HDL Cholesterol 38 L TSH 0.68 Urine Creatinine 128.42 Urine Microalbumin 7.0 Microalb/Creat Ratio 5.4 Assessment & Plan Assessment & Plan (1) Type 2 diabetes mellitus without complication: Code(s): E11.9 - Type 2 diabetes mellitus without complications Category: Medical Qualifiers: Diabetes mellitus skilled nursing insulin use: with skilled nursing use Qualified Code(s): E11.9 - Type 2 diabetes mellitus without complications; Z79.4 - care home (current) use of insulin Plan In summary this is a 60-year-old male with suboptimally controlled type 2 diabetes with no known complications. His goals are to decrease insulin requirement and work on weight loss and diabetic control. Target A1c less than 7%. Continue metformin 1000 mg twice a day Increase Jardiance. Take 2 10 mg tablets until you run out of the current prescription and then start 25 mg every day. We reviewed potential side effects including genitourinary infections. If he develops side effects on the medication he will contact the office. Check renal function 2 weeks after adjusting the dose. Stay well hydrated. Start Mounjaro 7.5 weekly 1 week after the last dose of 5 mg. Monitor for side effects. Decrease Lantus from 40 units to 32 units nightly. If low blood sugars occur after making these adjustments decrease to 28 units. If low blood sugars are less than 60 decrease to 24 units. He is not taking lispro insulin. I discontinued this from his medication list. If you experience low blood sugar (under 70), treat this by eating a chewable fruit candy like skittles or jelly beans (about 8 pieces), 4 ounces (1/2 cup) of fruit juice (not diet), 1 tablespoon of honey or 4 glucose tablets. If your blood sugar is under 50, take double the amount of one of the above. Recheck your blood sugar in 15 minutes. Follow up in 6 weeks for type 2 diabetes. Orders: Orders Vitamin B12 Today DECLAN Woods E11.9 - Type 2 diabetes mellitus without complications, Z91.89 - Other specified personal risk factors, not elsewhere classified Creatinine Today DECLAN Woods E11.9 - Type 2 diabetes mellitus without complications Alanine Aminotransferase Today DECLAN Woods E11.9 - Type 2 diabetes mellitus without complications AMB Glucose Monitoring Today DECLAN Woods E11.9 - Type 2 diabetes mellitus without complications AMB Hemoglobin A1c Today DECLAN Woods E11.9 - Type 2 diabetes mellitus without complications Lipid Panel Today DECLAN Woods E11.9 - Type 2 diabetes mellitus without complications, E78.5 - Hyperlipidemia, unspecified Aspartate Amino Transferase Today DECLAN Woods E11.9 - Type 2 diabetes mellitus without complications Medications: New tirzepatide (Mounjaro) 7.5 mg (0.5 mL) subcut QWEEK 2 mL 0RF DECLAN Woods empagliflozin (Jardiance) 25 mg PO QAM 90 tabs 1RF DECLAN Woods Changed From Lantus Solostar U-100 Insulin (insulin glargine) 40 units (0.4 mL) subcut DAILY 30 days 15 mL 3RF NS To insulin glargine (Lantus Solostar U-100 Insulin) 32 units subcut DAILY Poornima Gates NP Discontinued insulin lispro (Humalog KwikPen (U-100) Insulin) Discontinued Reason: Doctor's Order 8 units (0.08 mL) subcut TID 15 mL 5RF tirzepatide (Mounjaro) Discontinued Reason: Doctor's Order 5 mg (0.5 mL) subcut QWEEK 2 mL 5RF empagliflozin (Jardiance) Discontinued Reason: Doctor's Order 10 mg PO DAILY 30 days 30 tabs 2RF Patient Instructions: Decrease Lantus from 40 units to 32 units nightly Continue metformin 1000 mg twice a day Increase Jardiance. Take 2 10 mg tablets until you run out and then start 25 mg every day. Start Mounjaro 7.5 weekly 1 week after the last dose of 5 mg. If you experience low blood sugar (under 70), treat this by eating a chewable fruit candy like skittles or jelly beans (about 8 pieces), 4 ounces (1/2 cup) of fruit juice (not diet), 1 tablespoon of honey or 4 glucose tablets. If your blood sugar is under 50, take double the amount of one of the above. Recheck your blood sugar in 15 minutes. 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
[2025-08-21 13:04] VITALS: BP 122/62; PULSE 79; O2SAT 96; BMI 13.9
[2025-08-21 13:20] LABS: Glucose, Whole Blood 162 mg/dL (60-115)
== END 2025-08-21 13:44 | disposition home or self-care (01) ==
LOC: HO.ENCR 12:57
PROVIDERS: PCP Family Medicine; Visit Provider Physician Assistant Medical
DX: E11.9 Type 2 diabetes mellitus without complications (principal); Z79.4 Long term (current) use of insulin

== ENCOUNTER → 2025-08-21 12:56 | Outpatient (BNVA) | payer OTHER, SELFPAY | PROVIDERS: PCP Family Medicine; Visit Provider Physician Assistant Medical | DX: E11.9 Type 2 diabetes mellitus without complications (principal); Z79.4 Long term (current) use of insulin | CPT/HCPCS: 82947; 83036; 99212 ==

== ENCOUNTER 2025-09-05 10:32 | Outpatient (REF) | payer OTHER, SELFPAY ==
[2025-09-05 12:00] LABS: Alanine Aminotransferase 29 U/L (0-40); Aspartate Amino Transferase 23 U/L (5-37); Cholesterol 145 mg/dL (<200); Estimated Glomerular Filt Rate > 60; HDL Cholesterol 39 mg/dL (>40); Triglycerides 141 mg/dL (<150)
[2025-09-05 12:30] LABS: Vitamin B12 213 pg/mL (200-900)
== END 2025-09-05 10:33 | disposition home or self-care (01) ==
LOC: HO.LAB 10:32
PROVIDERS: PCP Internal Medicine; Visit Provider Physician Assistant Medical
DX: E11.9 Type 2 diabetes mellitus without complications (principal); E78.5 Hyperlipidemia, unspecified; Z91.89 Other specified personal risk factors, not elsewhere classified
CPT/HCPCS: 36415; 80061; 82565; 82607; 84450; 84460

== ENCOUNTER 2025-10-05 15:53 | Outpatient (AMB) | payer OTHER, SELFPAY ==
--- NOTE | 2025-10-05 15:56 | MHC.OFFVIS ---
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 (FreeStyle Veronika 3 [place]) As directed bupropion HCl SR 200 mg PO DAILY 90 days cyanocobalamin (vitamin B-12) 500 mcg PO DAILY empagliflozin (Jardiance) 25 mg PO QAM escitalopram oxalate 20 mg PO BEDTIME 30 days ibuprofen 200 mg PO Q6H PRN insulin glargine (Lantus Solostar U-100 Insulin) 32 units subcut DAILY lancets As directed tid lidocaine 4% (Salonpas (lidocaine)) 1 patch topical DAILY PRN metformin 1,000 mg (2 x 500 mg) PO BID 90 days pen needle, diabetic qid tadalafil (Cialis) 20 mg PO DAILY PRN tirzepatide (Mounjaro) 10 mg (0.5 mL) subcut QWEEK HPI Comments Details: This is a 60-year-old male with a past medical history of low testosterone, hypertension, hyperlipidemia, type 2 diabetes and depression presenting for diabetic management. He was diagnosed with diabetes in 2021. He has a family history of Type II diabetes. Reviewed CGM data for the past 2 weeks CGM active 99% Average glucose 195 G MN 8% Glucose variability 31.8% Very high 21% High 32% Target range 47% Hypoglycemia 0% Patient has hyperglycemia during the day and evening and late night. Blood sugars are better nocturnally. Current medication: Lantus 32 units at nightly, metformin 1000 mg twice a day, Jardiance 25 mg daily, Mounjaro 7.5 mg weekly Past medication: Glipizide ineffective He has hyperlipidemia, on a statin. He has an eye exam scheduled this month. Hyperlipidemia is treated with atorvastatin. Hypertension is treated with amlodipine-benazepril. ROS: Constitutional: No unexplained weight loss, fatigue or night sweats Gastrointestinal: No anorexia, nausea, vomiting or diarrhea. No abdominal pain Neurologic: No numbness or tingling in the extremities. Endocrine: No cold or heat intolerance. No polyuria or polydipsia. Physical exam: Constitutional: Alert, in no distress. Neck: Supple, Full range of motion. No lymphadenopathy. No palpable thyroid masses. Respiratory: Clear to auscultation. Cardiovascular: S1 S2 regular. No murmurs. [facility] Medical History Obesity due to excess calories Diabetes type 2, uncontrolled Low testosterone Hyperlipidemia Hypertension Obstructive sleep apnea Surgical History Hx of colonoscopy History of total hip replacement Family History Father Cancer Stroke (cerebrum) Mother CVD (cardiovascular disease) Diabetes HTN (hypertension) Mental disorder Brother Diabetes CVD (cardiovascular disease) Social History Household Members: Spouse Housing: House Are you a primary career guidance counselor to a significant other at home: No Do you presently have visiting nurse or other home services: No Alcohol intake: current Alcohol intake frequency: holidays/special occasions only Patient Tobacco Use Status: Former Tobacco user e-Cigarette/Vaping Use: Never Used Second Hand Smoke Exposure: No service: No Current occupational status: employed Current occupation: [employer]. Current occupational exposures/hazards: No Cognitive needs: No Hearing needs: No Vision needs: No Physical Exam Vital Signs: Last Vital Signs Pulse 101 H 10/05/25 15:59 BP 124/68 10/05/25 15:59 Pulse Ox 98 10/05/25 15:59 Oxygen Delivery Method Room Air 10/05/25 15:59 BMI result Body Mass Index 29.8 Office Procedures Glucose Monitoring Details Details: See HPI 11250 - Glucose monitoring, continuous-physician I&R Procedure code (CPT) selection complete Results Reviewed Results Reviewed: Laboratory Last Values Glucose (Clinic) 276 mg/dL (60-115) H 10/05/25 16:07 Laboratory Tests 09/05/25 10:38 Creatinine 0.86 Estimated GFR > 60 AST 23 ALT 29 Triglycerides 141 Cholesterol 145 LDL Cholesterol, Calc 78 HDL Cholesterol 39 L Vitamin B12 213 Assessment & Plan Assessment & Plan (1) Type 2 diabetes mellitus without complication: Code(s): E11.9 - Type 2 diabetes mellitus without complications Category: Medical Qualifiers: 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 Continue statin. Recommended Mediterranean diet. (3) Hypertension: Code(s): I10 - Essential (primary) hypertension Category: Medical Qualifiers: Hypertension type: primary hypertension Qualified Code(s): I10 - Essential (primary) hypertension Plan: Controlled. Continue current regimen. Plan In summary this is a 60-year-old male with suboptimally controlled type 2 diabetes with no known complications. His goals are to decrease insulin requirement and work on weight loss and diabetic control. Target A1c less than 7%. Continue metformin 1000 mg twice a day Continue Jardiance 25 mg daily Increase Mounjaro to 10 mg weekly Continue Lantus 32 units nightly If you experience low blood sugar (under 70), treat this by eating a chewable fruit candy like skittles or jelly beans (about 8 pieces), 4 ounces (1/2 cup) of fruit juice (not diet), 1 tablespoon of honey or 4 glucose tablets. If your blood sugar is under 50, take double the amount of one of the above. Recheck your blood sugar in 15 minutes. Follow up in 8 weeks for type 2 diabetes. Orders: Orders AMB Glucose Monitoring Today E11.9 - Type 2 diabetes mellitus without complications Medications: New tirzepatide (Mounjaro) 10 mg (0.5 mL) subcut QWEEK 2 mL 2RF Discontinued tirzepatide (Mounjaro) Discontinued Reason: Doctor's Order 7.5 mg (0.5 mL) subcut QWEEK 2 mL 0RF Coding Level of Care Code Est Pt Level 4 (86074) Diagnoses Type 2 diabetes mellitus without complication, with long-term current use of insulin E11.9; Z79.4 Diabetes mellitus skilled nursing insulin use: with skilled nursing use Pure hypercholesterolemia E78.00 Hyperlipidemia type: pure hypercholesterolemia Primary hypertension I10 Hypertension type: primary hypertension CPT Codes Details - CPT: 65775 - Glucose monitoring, continuous-physician I&R ([id number])
[2025-10-05 15:59] VITALS: BP 124/68; PULSE 101; O2SAT 98; BMI 29.8
[2025-10-05 16:14] LABS: Glucose, Whole Blood 276 mg/dL (60-115)
== END 2025-10-05 16:46 | disposition home or self-care (01) ==
LOC: HO.ENCR 15:54
PROVIDERS: PCP Family Medicine; Visit Provider Physician Assistant Medical
DX: E11.9 Type 2 diabetes mellitus without complications (principal); Z79.4 Long term (current) use of insulin; E78.00 Pure hypercholesterolemia, unspecified; I10 Essential (primary) hypertension

== ENCOUNTER → 2025-10-05 15:53 | Outpatient (BNVA) | payer OTHER, SELFPAY | PROVIDERS: PCP Family Medicine; Visit Provider Physician Assistant Medical | DX: E11.9 Type 2 diabetes mellitus without complications (principal); Z79.4 Long term (current) use of insulin; I10 Essential (primary) hypertension; E78.00 Pure hypercholesterolemia, unspecified | CPT/HCPCS: 82947; 99212 ==